=== PATIENT | female | born 1980 | race African-American/Black ===

== ENCOUNTER 2016-07-19 10:43 | Inpatient (IN) | payer BC ==
[2016-07-17 13:04] VITALS: BMI 37.5
[2016-07-19] MEDS ORDERED: ROCURONIUM BROMIDE 50 MG/5 ML VIAL ONE ×2 (11:49→14:18)
[2016-07-19] MEDS ORDERED: PROPOFOL 20 ML ONE (11:49)
[2016-07-19] MEDS ORDERED: MIDAZOLAM HCL 2 MG/2 ML SINGLE DOSE VIAL ONE (11:50)
[2016-07-19] MEDS ORDERED: BUPIVACAINE HCL/PF 0.5% (5MG/ML) 10 ML VIAL ONE (11:52)
[2016-07-19] MEDS ORDERED: INDOCYANINE GREEN 25 MG/10 ML VIAL IVPUSH ONE (12:53)
[2016-07-19] MEDS ORDERED: METRONIDAZOLE 500 MG PREMIXED 100 ML IVPB ONE (13:31)
[2016-07-19] MEDS ORDERED: BUPIVACAINE HCL/PF 0.5% (5MG/ML) 10 ML VIAL IJ ONE ×2 (13:34)
[2016-07-19] MEDS ORDERED: LEVOFLOXACIN 500 MG PREMIX BAG IVPB ONE (13:35)
[2016-07-19] MEDS ORDERED: METRONIDAZOLE 500 MG PREMIXED 500 MG/100 ML MG IVPB ONE (13:40)
[2016-07-19] MEDS ORDERED: GLYCOPYRROLATE 0.2 MG/1 ML VIAL ONE (15:50)
[2016-07-19] MEDS ORDERED: NEOSTIGMINE METHYLSULFATE 0.5 MG/ML - 10 ML MDV ONE (15:51)
--- NOTE | 2016-07-19 16:07 | OP ---
Operative Note - Note: Operative Date: 07/19/16 Pre-Operative Diagnosis: Abdominal pain. h/o SBO Operation: Robotic lysis of adhesions. repair small bowel enterotomy. cecal pexy. Findings: Internal hernia Post-Operative Diagnosis: Same as Pre-op Surgeon: Roni Herrera Wind Turbine Sheet Metal Worker: Tony Puga Anesthesiologist/ORNAMENTAL IRON WORKER: Ayaan Arenas Anesthesia: General Estimated Blood Loss (mls): 5 Fluid Volume Replaced (mls): 1,200
--- NOTE | 2016-07-19 16:09 | SURG ---
Surgery Distribution Coordinator Note Distribution Coordinator: Tony Puga PA-C Date of Service: 07/19/16 Diagnosis: h/o SBO, abdominal pain Procedure: Robotic lysis of adhesions, repair small bowel enterotomy, cecal pexy I was present for the entirety of the operative procedure. For further detail, please refer to operative report. Visit type - Case Type Case Type: Scheduled Admission - New patient This patient is new to me today: Yes Date on this admission: 07/19/16
[2016-07-19] MEDS ORDERED: ACETAMINOPHEN 1000 MG/100 ML VIAL (NON FORMULARY) IVPB PRN (16:11)
[2016-07-19] MEDS ORDERED: PROMETHAZINE HCL 25 MG/1 ML VIAL IVPUSH PRN (16:15)
[2016-07-19] MEDS ORDERED: ONDANSETRON 4 MG/2 ML VIAL IVPUSH PRN (16:15)
[2016-07-19] MEDS ORDERED: LACTATED RINGERS SOLUTION 1,000 ML IV SCH (16:15)
[2016-07-19] MEDS ORDERED: ACETAMINOPHEN INJECTION 100 ML IVPB ONE (16:47)
[2016-07-19] MEDS ORDERED: ACETAMINOPHEN 1000 MG/100 ML VIAL (NON FORMULARY) IVPB ONE (16:58)
[2016-07-19] MEDS: oxyCODONE HCL 5 MG TABLET PO PRN (19:27)
[2016-07-19] MEDS: HEPARIN NA (PORCINE) 5,000 UNITS/ML 1ML VIAL SQ SCH (22:00)
[2016-07-20] MEDS: HEPARIN NA (PORCINE) 5,000 UNITS/ML 1ML VIAL SQ SCH ×3 (06:50→21:31)
[2016-07-20] MEDS: oxyCODONE HCL 5 MG TABLET PO PRN ×4 (08:25→19:44)
[2016-07-20] MEDS: FOLIC ACID 1 MG TABLET (FP) PO SCH (09:42)
--- NOTE | 2016-07-20 10:37 | PN ---
Progress Note (short form) - Note Progress Note: Patient seen and examined. Patient is having abdominal pain, worse with movement and deep breaths. Pain medication is helping. She is tolerating her diet and urinating without issue. Denies passing flatus. She has not been OOB yet. Denies fever/chills/nausea/vomiting. Last Vital Signs Temp Pulse Resp BP Pulse Ox 97.7 F 70 18 113/67 96 07/20/16 07:36 07/20/16 07:36 07/20/16 07:36 07/20/16 07:36 07/20/16 09:00 Exam: Gen: NAD Abd: incisions c/d/i, soft, nondistended, tender to palp RLQ and Left side around incisions Problem List - Problems (1) Hernia of abdominal cavity Assessment/Plan: POD#1 Robotic lysis of adhesions, repair small bowel enterotomy, cecal pexy Discussed with Dr. Herrera Advance diet to fulls for lunch, regular dinner for dinner as tolerated, DC IVF Pain control, Tylenol added, 5 or 10 mg PO oxycodone Ambulate FOllow-up morning labs DVT prophylaxis Code(s): K46.9 - UNSPECIFIED ABDOMINAL HERNIA WITHOUT OBSTRUCTION OR GANGRENE
--- NOTE | 2016-07-20 11:58 | OP ---
DATE OF OPERATION: 07/19/2016 PROCEDURE: Robotic-assisted diagnostic laparoscopy, lysis of adhesions, enterorrhaphy, and cecopexy. PREOPERATIVE DIAGNOSES: Chronic right lower quadrant abdominal pain, possible internal herniation. SURGEON: Roni Herrera MD POSTOPERATIVE DIAGNOSES: Intra-abdominal adhesions, internal hernia, enterotomy , floppy cecum. SCRAP CUTTER: INES Herrera ANESTHESIA: General endotracheal. INDICATIONS: This is a 35-year-old female who presents with intermittent right lower quadrant pain associated with nausea and occasional constipation. The patient has had multiple visits to the emergency department where the latest CT scan showed multiple loops of bowel in the right lower quadrant with mesenteric swirling and possible internal herniation. The patient was advised to have a diagnostic laparoscopy to correct the possible cause of the symptoms. Consent was obtained after discussing the risks, benefits and alternatives of the procedure. DESCRIPTION OF PROCEDURE: The patient was brought to the operating room and placed in supine position. General endotracheal anesthesia was administered. A Clark catheter was placed in the bladder. The abdomen was prepped and draped in the usual sterile fashion. Using 0.5% Marcaine, local anesthesia was administered to the proposed incision site. The peritoneal cavity was entered via a left upper quadrant subcostal 8-mm incision using the Veress needle technique. Pneumoperitoneum was established. An 8-mm port was inserted into the peritoneal cavity, followed by insertion of the 3D 30-degree scope. The peritoneal cavity was inspected and was noted to contain dense adhesions to the posterior abdominal wall containing small bowel and omentum. Three 8-mm ports were inserted, one at the flank at the level of the umbilicus, one at the left lower quadrant, and one 7 mm away from the subcostal port. The laparoscope was then transferred to the flank port at the umbilical level. The patient was then placed in the Trendelenburg left side down position. The target organ was set and the robotic arms were docked. A fenestrated bipolar was inserted at the left lower quadrant port. The laparoscopic jeffy were inserted at the lateral subcostal port and the ProGrasp forceps were inserted at the medial subcostal port. The adhesions were then taken down sharply using the Endorist jeffy connected to monopolar cautery. During the procedure, an inadvertent enterotomy to the loop of small bowel firmly adherent to the posterior abdominal wall was created. The rest of the dense adhesions to the several loops of small bowel were then taken down. After the adhesions were completely taken down, the inadvertent enterotomy was repaired with 2 layers of Vicryl 2-0 - an inner layer of 2-0 Vicryl continuous suture and then a seromuscular layer of 2-0 Vicryl suture. After repair was deemed satisfactory , the rest of the abdomen was carefully inspected. The anterior wall of the uterus was noted to be adherent to the posterior abdominal wall because of the patient's previous section. The distal small bowel and the cecum were noted to be herniated into the pelvis behind the right fallopian tube, . The cecum was noted to be collapsed and was floppy with no attachment to the right pericolic gutter. The cecum and distal small bowel were then reduced back to the abdominal cavity from the pelvis. The small bowel was then inspected, starting from the ileocecal valve toward the ligament of Treitz. Several segments of dilated small bowel were noted but no kinking was noted other than the most proximal jejunum, where the previous resection and anastomosis were found. The flimsy adhesion was also taken down. The omental adhesion below the umbilicus was also taken down using the Endowrist jeffy connected to monopolar cautery. The enterorrhaphy was again inspected and was noted to be satisfactory. The floppy cecum was then anchored to the right pericolic gutter with one [id number] Vicryl 3-0 suture to prevent future cecal volvulus. The peritoneal cavity was again carefully inspected and was noted to be free of inadvertent injury or active bleeding. The robotic instruments were then removed and the robotic arms were undocked. The pneumoperitoneum was evacuated and the ports were removed. The wounds were closed with subcuticular Biosyn 4 sutures for the skin reinforced with Dermabond. The patient was successfully extubated and transferred to the post anesthesia care unit in satisfactory condition. ESTIMATED BLOOD LOSS: Approximately 5 mL WOUND CLASS: Clean - contaminated. The patient received 500 mg of Levaquin and 500 mg of Flagyl prior to the start of the procedure. Latia [id number] MTDD
--- NOTE | 2016-07-20 12:26 | HP ---
Admitting History and Physical - Admission Chief Complaint: abdominal pain, S/P robotic JESSE, enterorrhaphy, cecopexy History of Present Illness: 35 Y.O FEMALE WITH HISTORY OF CHRONIC RIGHT SIDED ABDOMINAL PAIN WITH CT FINDINGS OF POSSIBLE INTERNAL HERNIA. PATIENT IS S/P ROBOTIC ASSISTED JESSE, ENTERORRHAPHY, CECOPEXY FOR DENSE INTRAABDOMINAL ADHESIONS, ENTEROTOMY, AND FLOPPY CECUM. CURRENTLY C/O MODERATE POST-OP PAIN, NO FLATUS, AND TOLERATING CLEAR LIQUIDS. 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: Seizure (CHILDHOOD) Gastrointestinal: Yes: Other (SMALL BOWEL RESECTON FOR SBO) ...LMP Comment: 06/17/16 - Past Surgical History Additional Past Surgical History: Exploratory laparotomy, small bowel resection for SBO - Advance Directives Advance Directives: Yes: Health Care Proxy - Smoking History Smoking history: Never smoked - Alcohol/Substance Use Hx Alcohol Use: Yes (WINE OCCAS) Home Medications - Allergies Allergies/Adverse Reactions: Allergies Allergy/AdvReac Type Severity Reaction Status Date / Time No Known Allergies Allergy Verified 07/19/16 11:17 - Home Medications Home Medications: Ambulatory Orders Folic Acid 1 mg PO DAILY 04/29/16 Cholecalciferol (Vitamin D3) [Vitamin D3] 50,000 unit PO WEEKLY 07/17/16 Oxycodone HCl/Acetaminophen [Percocet 10-325 mg Tablet] 1 each PO PRN PRN Oxycodone HCl/Acetaminophen [Percocet 5-325 mg Tablet] 1 tab PO Q4H PRN #20 tablet MDD 6 07/19/16 Physical Examination Vital Signs: Vital Signs Temperature 97.7 F 07/20/16 07:36 Pulse Rate 70 07/20/16 07:36 Respiratory Rate 18 07/20/16 07:36 Blood Pressure 113/67 07/20/16 07:36 O2 Sat by Pulse Oximetry (%) 96 07/20/16 09:00 Constitutional: Yes: Well Nourished, Mild Distress Eyes: Yes: Conjunctiva Clear HENT: Yes: Normocephalic Neck: Yes: Supple Cardiovascular: Yes: Regular Rate and Rhythm Respiratory: Yes: CTA Bilaterally Gastrointestinal: Yes: Abdomen, Obese, Tenderness (+ SUPRAUMBILICAL AND RUQ TENDERNESS) ...Rectal Exam: Yes: Deferred Imaging - Results Cat Scan: Report Reviewed, Image Reviewed Problem List - Problems (1) Adhesion of abdominal wall Assessment/Plan: ADMIT FOR IN PATIENT SERVICES CLEAR LIQUID DIET CONTINUE IVF PARENTERAL ANALGESIA OOB, IS, DVT PROPHYLAXIS Code(s): K66.0 - PERITONEAL ADHESIONS (POSTPROCEDURAL) (POSTINFECTION)
[2016-07-20] MEDS: ACETAMINOPHEN 325 MG TABLET (FP) PO PRN ×3 (12:29→19:44)
[2016-07-21] MEDS: ACETAMINOPHEN 325 MG TABLET (FP) PO PRN ×4 (02:29→21:49)
[2016-07-21] MEDS: oxyCODONE HCL 5 MG TABLET PO PRN ×4 (02:29→21:48)
[2016-07-21] MEDS: HEPARIN NA (PORCINE) 5,000 UNITS/ML 1ML VIAL SQ SCH ×3 (06:27→21:26)
[2016-07-21 08:16] LABS: MCH 28.2 pg (25.7-33.7); MCHC 33.6 g/dl (32.0-36.0); MEAN CELL VOLUME 83.8 fl (80-96); MEAN PLT VOLUME 8.1 fl (7.5-11.1); PLATELET COUNT 262 K/MM3 (134-434); RDW 13.5 % (11.6-15.6); WHITE BLOOD COUNT 5.6 K/mm3 (4.0-10.0)
[2016-07-21] MEDS: FOLIC ACID 1 MG TABLET (FP) PO SCH ×2 (08:35→10:03)
[2016-07-21 08:37] LABS: CALCIUM 8.4 mg/dL (8.5-10.1)
--- NOTE | 2016-07-21 11:34 | PN ---
Progress Note (short form) - Note Progress Note: Surgery-Dr. Herrera Patient seen and examined, discussed with nursing. Patient states she feels better than yesterday. States she is still having pain, but this is improving. She tolerated clears and wants to try something thicker. She states she is passing a lot of gas. Denies fever, chills, nausea, vomiting. Last Vital Signs Temp Pulse Resp BP Pulse Ox 98.0 F 80 18 144/90 99 07/21/16 08:04 07/21/16 08:04 07/21/16 08:04 07/21/16 08:04 07/20/16 21:00 CBC, BMP 07/21/16 06:45 07/21/16 06:45 Exam: Gen: NAD, resting in bed Cardio: RRR Resp: CTA Abd: soft, nondistended, incisional tenderness and tender in RUQ with palp, incisions c/d/i Problem List - Problems (1) Hernia of abdominal cavity Assessment/Plan: POD#2 s/p robotic lysis of adhesions, repair small bowel enterotomy, cecal pexy Discussed with Dr. Herrera Full liquids Pain control, Tylenol, 5 or 10 mg PO oxycodone Ambulate DVT prophylaxis Code(s): K46.9 - UNSPECIFIED ABDOMINAL HERNIA WITHOUT OBSTRUCTION OR GANGRENE
[2016-07-21] MEDS ORDERED: ONDANSETRON 4 MG/2 ML VIAL IVPB ONE (22:15)
--- NOTE | 2016-07-21 23:10 | HOSP ---
Subjective - Review of Symptoms Events since last encounter: Pt c/o nausea, RUQ pain that radiates to her R arm, and chest tightness. Nausea was relieved with zofran. RUQ pain worse with breathing, is 10/10 and constant. Denies any diaphoresis or pain radiating anywhere else. Chest tightness started approximately 1 hour ago. She denies SOB but is having trouble taking deep breaths due to pain. Pt states she is unsure if pain is worse with food since she has not eaten recently. Pt also states her period has also just started. At approximately 11:30 pm, rechecked on patient and states pain is subsiding. Physical Examination Vital Signs: Vital Signs Temperature 98.7 F 07/21/16 18:30 Pulse Rate 98 H 07/21/16 18:30 Respiratory Rate 20 07/21/16 18:30 Blood Pressure 141/82 07/21/16 18:30 O2 Sat by Pulse Oximetry (%) 99 07/21/16 09:00 Constitutional: Yes: Well Nourished, Calm, Mild Distress (slow to speak) Eyes: Yes: WNL HENT: Yes: WNL, Atraumatic, Normocephalic Cardiovascular: Yes: WNL, Regular Rate and Rhythm, S1, S2 Respiratory: Yes: WNL, CTA Bilaterally (auscultated anteriorly) Gastrointestinal: Yes: Soft, Hypoactive Bowel Sounds, Tenderness (Epigastric and L sided pain moderate pain to palpation. R sided mild pain to palpation.) Neurological: Yes: WNL, Alert, Oriented Labs: CBC, BMP 07/21/16 06:45 07/21/16 06:45 Hospitalist Encounter Assessment: Chest tightness/RUQ pain, radiating to R arm -Stat EKG ordered -NSR at 91 bpm, qtc 462 -Stat trop ordered -consider abd U/S for gallstones -will hold off on pain meds as pt is stating pain is improving at this time. Nausea -Zofran 4mg IV once ordered Visit type - Emergency Visit Emergency Visit: Yes ED Registration Date: 07/19/16 Care time: The patient presented to the Emergency Department on the above date and was hospitalized for further evaluation of their emergent condition. - New Patient This patient is new to me today: Yes Date on this admission: 07/25/16 - Critical Care Critical Care patient: No
[2016-07-21] MEDS ORDERED: oxyCODONE HCL 5 MG TABLET PO ONE (23:19)
[2016-07-22] MEDS: HEPARIN NA (PORCINE) 5,000 UNITS/ML 1ML VIAL SQ SCH ×3 (06:24→21:31)
--- NOTE | 2016-07-22 09:28 | PN ---
Progress Note (short form) - Note Progress Note: SURGERY C/O PERSISTENT ABDOMINAL PAIN ABD: EXQUISITE TENDERNESS OVER EPIGASTRIC AND RUQ AREAS A: R/O ENTERORRHAPHY LEAK P: CT SCAN OF THE ABDOMEN AND PELVIS STAT Addendum 10:45 pm Patient noted to be febrile to [address] scan of abdomen and pelvis showed residual pneumoperitoneum and free fluid consistent with post-op changes. Continues to have abdominal pain but states that it is less than the immediate post-op period. Abd: soft, tender on deep palpation A: unclear at this time if pain is secondary to lysis of scar tissue or possible enterotomy leak P: stat cbc, bmp, u/a, u c/s, blood c/s, empiric Zosyn will reassess in am and if pain is unchanged or worse, will return to OR diagnostic laparoscopy possible laparotomy Problem List - Problems (1) Adhesion of abdominal wall Code(s): K66.0 - PERITONEAL ADHESIONS (POSTPROCEDURAL) (POSTINFECTION)
[2016-07-22 10:20] LABS: BASOPHIL 0.5 % (0-2.0); EOSINOPHIL 2.7 % (0-4.5); MCH 28.1 pg (25.7-33.7); MCHC 33.5 g/dl (32.0-36.0); MEAN CELL VOLUME 83.8 fl (80-96); MEAN PLT VOLUME 7.6 fl (7.5-11.1); NEUTROPHILS 67.8 % (42.8-82.8); PLATELET COUNT 273 K/MM3 (134-434); RDW 13.5 % (11.6-15.6); WHITE BLOOD COUNT 4.6 K/mm3 (4.0-10.0)
[2016-07-22 10:35] LABS: ALBUMIN 3.2 g/dl (3.4-5.0); ALK PHOS 63 U/L (45-117); AMYLASE 48 U/L (25-115); ANION GAP 9 (8-16); BILIRUBIN,TOTAL 0.5 mg/dL (0.2-1.0); CALCIUM 8.4 mg/dL (8.5-10.1); CO2 30 mmol/L (21-32); CREATININE 0.9 mg/dL (0.55-1.02); GLUCOSE,RANDOM 84 mg/dL (74-106); SGOT/AST 12 U/L (15-37); SGPT/ALT 15 U/L (12-78); TOT PROT 7.2 g/dl (6.4-8.2)
[2016-07-22] MEDS: ONDANSETRON 4 MG/2 ML VIAL IVPB PRN (11:20)
--- NOTE | 2016-07-22 12:37 | EKG ---
Test Reason : Blood Pressure : / mmHG Vent. Rate : 091 BPM Atrial Rate : 091 BPM P-R Int : 130 ms QRS Dur : 080 ms QT Int : 376 ms P-R-T Axes : 016 020 032 degrees QTc Int : 462 ms NORMAL SINUS RHYTHM NONSPECIFIC T WAVE ABNORMALITY PROLONGED QT ABNORMAL ECG NO PREVIOUS ECGS AVAILABLE Confirmed by MERNA MADRIGAL, DEBORAH ([id number]) on 07/22/2016 12:36:43 PM Referred By: Roni Herrera Confirmed By:DEBORAH BAUMAN MD
[2016-07-22] MEDS: oxyCODONE HCL 5 MG TABLET PO PRN (12:50)
[2016-07-22] MEDS: ACETAMINOPHEN 325 MG TABLET (FP) PO PRN ×2 (12:51→21:31)
[2016-07-22] MEDS: FOLIC ACID 1 MG TABLET (FP) PO SCH (14:53)
[2016-07-22] MEDS ORDERED: LACTATED RINGERS SOLUTION 1,000 ML IV SCH (17:30)
[2016-07-22] MEDS: LACTATED RINGERS SOLUTION 1,000 ML IV SCH (18:04)
[2016-07-22] MEDS ORDERED: PIPERACILLIN/TAZOB 3.375 GM/50 ML PRE-DOCKED IVPB ONE (22:28)
[2016-07-22 23:24] LABS: BASOPHIL 0.4 % (0-2.0); EOSINOPHIL 1.3 % (0-4.5); MCHC 33.4 g/dl (32.0-36.0); MEAN CELL VOLUME 83.7 fl (80-96); MEAN PLT VOLUME 7.8 fl (7.5-11.1); NEUTROPHILS 68.1 % (42.8-82.8); PLATELET COUNT 290 K/MM3 (134-434); RDW 13.7 % (11.6-15.6); WHITE BLOOD COUNT 4.7 K/mm3 (4.0-10.0)
[2016-07-22 23:51] LABS: CALCIUM 8.9 mg/dL (8.5-10.1); CREATININE 1.1 mg/dL (0.55-1.02)
[2016-07-23 01:31] LABS: URINE APPEARANCE CLEAR; URINE BILIRUBIN NEGATIVE (NEGATIVE); URINE COLOR STRAW; URINE GLUCOSE (UA) NEGATIVE (NEGATIVE); URINE KETONE NEGATIVE (NEGATIVE); URINE LEUK ESTERASE NEGATIVE (NEGATIVE); URINE NITRITE NEGATIVE (NEGATIVE); URINE PROTEIN NEGATIVE (NEGATIVE); URINE UROBILINOGEN NEGATIVE E.U./dl (0.2-1.0)
[2016-07-23 01:44] LABS: URINE BLOOD 1+ (NEGATIVE)
[2016-07-23 01:46] LABS: URINE RBC <1 /hpf (0-3); URINE WBC 1 /hpf (3-5)
[2016-07-23] MEDS: HEPARIN NA (PORCINE) 5,000 UNITS/ML 1ML VIAL SQ SCH ×3 (06:21→21:36)
[2016-07-23 07:54] LABS: BASOPHIL 0.3 % (0-2.0); EOSINOPHIL 1.1 % (0-4.5); MCH 28.2 pg (25.7-33.7); MCHC 33.9 g/dl (32.0-36.0); MEAN CELL VOLUME 83.2 fl (80-96); MEAN PLT VOLUME 7.7 fl (7.5-11.1); NEUTROPHILS 66.6 % (42.8-82.8); PLATELET COUNT 249 K/MM3 (134-434); RDW 13.6 % (11.6-15.6); WHITE BLOOD COUNT 4.5 K/mm3 (4.0-10.0)
[2016-07-23 08:36] LABS: CALCIUM 8.5 mg/dL (8.5-10.1)
[2016-07-23] MEDS: FOLIC ACID 1 MG TABLET (FP) PO SCH (11:50)
--- NOTE | 2016-07-23 12:49 | PN ---
Progress Note (short form) - Note Progress Note: Patient seen and examined with Dr. Herrera. Patient is still having some pain in her RUQ and left side of abdomen. She had a fever overnight, this is improving , patient states she has a runny nose. Patient had some nausea this morning, overall improving. She is passing a lot of gas, denies BM, is urinating without issue. Last Vital Signs Temp Pulse Resp BP Pulse Ox 98.8 F 95 H 18 108/65 95 07/23/16 08:50 07/23/16 08:50 07/23/16 08:50 07/23/16 08:50 07/23/16 09:10 CBC, BMP 07/23/16 07:00 07/23/16 07:00 Exam: Gen: NAD, resting comfortably in chair Abd: soft, nondistended, tender with deep palpation in RUQ and left abdomen near port sites Problem List - Problems (1) Hernia of abdominal cavity Assessment/Plan: POD#4 s/p robotic lysis of adhesions, repair small bowel enterotomy, cecal pexy Trial clear liquids Monitor pain Ambulate Discussed with Dr. Herrera Code(s): K46.9 - UNSPECIFIED ABDOMINAL HERNIA WITHOUT OBSTRUCTION OR GANGRENE
[2016-07-23] MEDS ORDERED: oxyCODONE HCL 5 MG TABLET PO PRN (12:53)
[2016-07-23] MEDS: LACTATED RINGERS SOLUTION 1,000 ML IV SCH ×2 (14:04→18:21)
[2016-07-23] MEDS: ACETAMINOPHEN 325 MG TABLET (FP) PO PRN ×2 (16:40→21:40)
[2016-07-24] MEDS: LACTATED RINGERS SOLUTION 1,000 ML IV SCH (01:31)
[2016-07-24] MEDS: HEPARIN NA (PORCINE) 5,000 UNITS/ML 1ML VIAL SQ SCH ×2 (05:51→13:03)
--- NOTE | 2016-07-24 08:17 | PN ---
Progress Note (short form) - Note Progress Note: POD#5 Pt with mid abd pain above the umbilicus yesterday after eating, the landry was relieved with tylenol. She is passing flatus and had two bowel movements. Vital Signs Period Temp Pulse Resp BP Sys/Phillips Pulse Ox Last 24 Hr 98.0 F-98.8 F 69-95 18-20 108-115/65-76 95-95 PE: GEN: appears comfortable CV: RRR Lungs: CTA b/l anteriorly ABD: soft, non-distended, mild abd tenderness above umbilicus, no guarding. Inc c/d/i LE: no calf tenderness/swelling b/l CBC, BMP 07/23/ 07:00 07/23/16 07:00 A/P: 35 yo female s/p robotic JESSE, SB enterotomy repair, cecal pexy Cont oob/ambulate Monitor pain after eating today and then plan for possible discharge today. DVT ppx with hep SQ Pain management with oral tylenol/oxycodone
[2016-07-24] MEDS: FOLIC ACID 1 MG TABLET (FP) PO SCH (09:33)
[2016-07-24] MEDS ORDERED: ERGOCALCIFEROL (VITAMIN D2) 50,000 UNIT CAPSULE (FP) PO SCH (10:00)
[2016-07-24] MEDS: ONDANSETRON 4 MG/2 ML VIAL IVPB PRN (13:03)
[2016-07-24] MEDS: ACETAMINOPHEN 325 MG TABLET (FP) PO PRN (13:03)
[2016-07-24 13:14] VITALS: BP 127/86; PULSE 91; TEMP 98.4
--- NOTE | 2016-07-24 16:54 | DS ---
Physical Exam: SUBJECTIVE: Patient seen and examined in the morning of POD#4, had mild abdominal pain above the umbilicus yesterday after eating, but the pain was relieved with Tylenol. She was passing flatus and had two bowel movements. In the afternoon the patient was oob, ambulating, tolerating diet, voiding without issue, without complaints. OBJECTIVE: Vital Signs Temperature 98.4 F 07/24/16 13:12 Pulse Rate 91 H 07/24/16 13:12 Respiratory Rate 22 07/24/16 13:12 Blood Pressure 127/86 07/24/16 13:12 O2 Sat by Pulse Oximetry (%) 98 07/24/16 09:00 PHYSICAL EXAM GENERAL: The patient is awake, alert, and fully oriented, in no acute distress, resting comfortably. HEAD: Normal with no signs of trauma. EYES: PERRL, extraocular movements intact, sclera anicteric, conjunctiva clear. ENT: Moist mucous membranes. NECK: Trachea midline, full range of motion, supple. LUNGS: Breath sounds equal, clear to auscultation bilaterally, no accessory muscle use. HEART: Regular rate and rhythm, S1, S2. ABDOMEN: Soft, nondistended, normoactive bowel sounds, mild ambominal tenderness above the umbilicus, no guarding, incisions c/d/i. EXTREMITIES: warm, well-perfused, without calf tenderness. NEUROLOGICAL: Normal speech, gait not observed. PSYCH: Normal mood, normal affect. SKIN: Warm, dry. LABS CBC,CMP WBC 4.5 K/mm3 (4.0-10.0) 07/23/16 07:00 RBC 3.91 M/mm3 (3.60-5.2) 07/23/16 07:00 Hgb 11.0 GM/dL (10.7-15.3) 07/23/16 07:00 Hct 32.6 % (32.4-45.2) 07/23/16 07:00 MCV 83.2 fl (80-96) 07/23/16 07:00 MCHC 33.9 g/dl (32.0-36.0) 07/23/16 07:00 RDW 13.6 % (11.6-15.6) 07/23/16 07:00 Plt Count 249 K/MM3 (134-434) 07/23/16 07:00 MPV 7.7 fl (7.5-11.1) 07/23/16 07:00 Neutrophils % 66.6 % (42.8-82.8) 07/23/16 07:00 Lymphocytes % 20.5 % (8-40) 07/23/16 07:00 Monocytes % 11.5 % (3.8-10.2) H 07/23/16 07:00 Eosinophils % 1.1 % (0-4.5) 07/23/16 07:00 Basophils % 0.3 % (0-2.0) 07/23/16 07:00 Sodium 140 mmol/L (136-145) 07/23/16 07:00 Potassium 3.8 mmol/L (3.5-5.1) 07/23/16 07:00 Chloride 100 mmol/L (98-107) 07/23/16 07:00 Carbon Dioxide 29 mmol/L (21-32) 07/23/16 07:00 Anion Gap 11 (8-16) 07/23/16 07:00 BUN 3 mg/dL (7-18) L 07/23/16 07:00 Creatinine 1.0 mg/dL (0.55-1.02) 07/23/16 07:00 Creat Clearance w eGFR > 60 (>60) 07/22/16 09:45 Random Glucose 87 mg/dL (74-106) 07/23/16 07:00 Calcium 8.5 mg/dL (8.5-10.1) 07/23/16 07:00 Total Bilirubin 0.5 mg/dL (0.2-1.0) D 07/22/16 09:45 AST 12 U/L (15-37) L D 07/22/16 09:45 ALT 15 U/L (12-78) 07/22/16 09:45 Alkaline Phosphatase 63 U/L (45-117) 07/22/16 09:45 Troponin I < 0.02 ng/ml (0.00-0.05) 07/21/16 23:11 Total Protein 7.2 g/dl (6.4-8.2) 07/22/16 09:45 Albumin 3.2 g/dl (3.4-5.0) L 07/22/16 09:45 Total Amylase 48 U/L (25-115) 07/22/16 09:45 Lipase 69 U/L (73-393) L 07/22/16 09:45 HOSPITAL COURSE: Date of Admission:07/19/16 Date of Discharge: 07/24/16 The patient with history of chronic right-sided abdominal landry with CT findings of possible internal hernia was admitted to the [facility] after an elective robotic assisted lysis of adhesions, enterorrhaphy, and cecopexy for dense adhesions, enterotomy, and floppy cecum. The patient had some persistent abdominal pain postoperatively, but repeat CT scan of abdomen and pelvis showed residual pneumoperitoneum and free fluid consistent with post-operative changes. The patient's pain continued to improve and was controlled by Tylenol prior to discharge. The patient was able to ambulate, void without issue, was passing flatus and having BMs, and was advanced to a regular diet. On POD#4 it was felt the patient was stable for discharge with instructions to follow-up with Dr. Herrera. The discharge instructions and an oral pain management plan were reviewed with the patient. All questions answered. Above plan discussed with Dr. Herrera and agreed. Post Operative Instructions Physical activity Resume your normal everyday activity as tolerated no heavy lifting or exercise until seen by your surgeon. You may walk unlimited carlie of and climb stairs. You may resume driving the car when you feel safe and comfortable behind the wheel. Do not drive while taking narcotics. Wound care If you have a bandage, leave it on, and keep dry for 48-72 hours. After that time discard the outer bandage. If there are tapes on the skin under the outer bandage, leave them in place. They will peel off in the next 7 to 10 days. Do Not Peel them off. You may shower the day after surgery. If there are tapes present on the skin, you may shower over them. Diet There are no dietary restrictions. Eat healthy, high-fiber foods. Drink 6 to 8 glasses of liquid each day. This will assist in keeping your bowels are regular. Pain management You may take Tylenol (acetaminophen). Any pain prescription medication ordered should be taken as prescribed for moderate to severe pain. Call Dr. Herrera for any of the following: Severe pain not relieved by medication Fever of 101 or higher Excessive bleeding or drainage on dressing Inability to urinate Call the office at [phone] for an appointment in seven days. Minutes to complete discharge: 30 Visit type - Case Type Case Type: Scheduled Admission
== END 2016-07-24 17:27 | disposition home or self-care (01) | DRG 330 ==
LOC: JASU-SURG 10:43 → J6S 17:55
PROVIDERS: ADMIT Surgery; ATTEND Surgery
PROC: 0DQH0ZZ Repair Cecum, Open Approach (ICD-10-PCS; 2016-07-19)
PROC: 0DNW0ZZ Release Peritoneum, Open Approach (ICD-10-PCS; 2016-07-19)
PROC: 0WJG4ZZ Inspection of Peritoneal Cavity, Percutaneous Endoscopic Approach (ICD-10-PCS; 2016-07-19)
PROC: 8E0W0CZ Robotic Assisted Procedure of Trunk Region, Open Approach (ICD-10-PCS; 2016-07-19)
PROC: 0DQ80ZZ Repair Small Intestine, Open Approach (ICD-10-PCS; principal; 2016-07-19 12:00)
DX: K45.8 Other specified abdominal hernia without obstruction or gangrene (principal); K56.60 Unspecified intestinal obstruction; K66.0 Peritoneal adhesions (postprocedural) (postinfection); R11.0 Nausea
CPT/HCPCS: 36415; 74177-TC; 80048; 80053; 81003; 81015; 82150; 83690; 84484; 84703; 85025; 85027; 86850; 86900; 86901; 87040; 87086; 93005; 93010; 94010; 94760; J1644; Q9967

== ENCOUNTER 2017-01-21 21:08 | Emergency (ER) | payer BC, OTHER ==
[2017-01-21 21:13] VITALS: BP 150/88; PULSE 93; TEMP 98.1; BMI 41.6
--- NOTE | 2017-01-21 21:17 | PDOC ---
History of Present Illness - General Chief Complaint: Pain Stated Complaint: ABD PAIN Time Seen by Provider: 01/21/17 21:15 History Source: Patient Exam Limitations: No Limitations - History of Present Illness Travel History: No Initial Comments: 01/21/17 21:15 36-year-old female with a history of seizures presents to the emergency department complaining of 10/10 sharp nonradiating intermittent right upper quadrant abdominal pains with nausea denies vomiting, fever/chills, dizziness, lightheadedness, headaches, neck pains, back pains, chest pain, shortness of breath, urinary symptoms: Frequency/urgency/hesitancy, hematuria, flank pains. Patient was seen by her GI physician earlier today and advised her to come to the emergency department for persistent discomfort. Patient denies similar symptoms. Timing/Duration: reports: intermittent Quality: reports: moderate Abdominal Pain Onset Location: reports: RUQ Pain Radiation: reports: no radiation Past History - Past Medical History Allergies/Adverse Reactions: Allergies Allergy/AdvReac Type Severity Reaction Status Date / Time No Known Allergies Allergy Verified 01/21/17 21:12 Home Medications: Ambulatory Orders NK [No Known Home Medication] 01/21/17 Seizures: Yes (EPILEPSY- LAST ONE WAS 15YRS AGO) - Surgical History Abdominal Surgery: Yes (SM BOWEL OBSTR) - Suicide/Smoking/Psychosocial Hx Smoking History: Never smoked Have you smoked in the past 12 months: No Information on smoking cessation initiated: No Hx Alcohol Use: No Drug/Substance Use Hx: No Substance Use Type: Alcohol Hx Substance Use Treatment: No Review of Systems - Review of Systems Able to Perform ROS?: Yes Comments:: 01/21/17 21:17 CONSTITUTIONAL: Absent: fever, chills, diaphoresis, generalized weakness, malaise, loss of appetite HEENT: Absent: rhinorrhea, nasal congestion, throat pain, throat swelling, difficulty swallowing, mouth swelling, ear pain, eye pain, visual Changes CARDIOVASCULAR: Absent: chest pain, loss of consciousness, palpitations, irregular heart rate, peripheral edema RESPIRATORY: Absent: cough, shortness of breath, dyspnea with exertion, orthopnea, wheezing, stridor, hemoptysis GASTROINTESTINAL: +RUQ pain Absent: abdominal distension, nausea, vomiting, diarrhea, constipation, melena, hematochezia GENITOURINARY: Absent: dysuria, frequency, urgency, hesitancy, hematuria, flank pain, genital pain MUSCULOSKELETAL: Absent: myalgia, arthralgia, joint swelling SKIN: Absent: rash, itching, pallor HEMATOLOGIC/IMMUNOLOGIC: Absent: easy bleeding, easy bruising, lymphadenopathy, frequent infections ENDOCRINE: Absent: unexplained weight gain, unexplained weight loss, heat intolerance, cold intolerance NEUROLOGIC: Absent: headache, focal weakness or paresthesias, dizziness, unsteady gait, seizure, mental status changes, bladder or bowel incontinence PSYCHIATRIC: Absent: anxiety, depression, suicidal or homicidal ideation, hallucinations. Is the patient limited Andorran proficient: No *Physical Exam - Vital Signs Last Vital Signs Temp Pulse Resp BP Pulse Ox 98.1 F 93 H 18 150/88 100 01/21/17 21:11 01/21/17 21:11 01/21/17 21:11 01/21/17 21:11 01/21/17 21:11 - Physical Exam Comments: 01/21/17 21:17 GENERAL: Well developed, well nourished. Awake and alert. No acute distress. HEENT: Normocephalic, atraumatic. PERRLA, EOMI. No conjunctival pallor. Sclera are non- icteric. Moist mucous membranes. Oropharynx is clear. NECK: Supple. Full ROM. No JVD. Carotid pulses 2+ and symmetric, without bruits. No thyromegaly. No lymphadenopathy. CARDIOVASCULAR: Regular rate and rhythm. No murmurs, rubs, or gallops. Distal pulses are 2+ and symmetric. PULMONARY: No evidence of respiratory distress. Lungs clear to auscultation bilaterally. No wheezing, rales or rhonchi. ABDOMINAL: RUQ pain on palp Soft. Non-distended. No rebound or guarding. No organomegaly. Normoactive bowel sounds. MUSCULOSKELETAL Normal range of motion at all joints. No bony deformities or tenderness. No CVA tenderness. EXTREMITIES: No cyanosis. No clubbing. No edema. No calf tenderness. SKIN: Warm and dry. Normal capillary refill. No rashes. No jaundice. NEUROLOGICAL: Alert, awake, appropriate. Cranial nerves 2-12 intact. No deficits to light touch and temperature in face, upper extremities and lower extremities. No motor deficits in the in face, upper extremities and lower extremities. Normoreflexic in the upper and lower extremities. Normal speech. Toes are down- going bilaterally. Gait is normal without ataxia. PSYCHIATRIC: Cooperative. Good eye contact. Appropriate mood and affect. ED Treatment Course - LABORATORY CBC & Chemistry Diagram: 01/21/17 21:19 01/21/17 21:19 Progress Note - Progress Note Progress Note: US abd limited Gallbladder contracted CBD 5mm/NL *DC/Admit/Observation/Transfer Diagnosis at time of Disposition: Disorder of gallbladder - Discharge Dispostion Disposition: HOME Condition at time of disposition: Stable Admit: No - Referrals Referrals: STAFF,NOT ON [Primary Care Provider] - Carlyle Nagy MD [Staff Physician] - - Patient Instructions Printed Discharge Instructions: DI for General Gallbladder Conditions Additional Instructions: Follow up with your physician and the Surgeon listed on your discharge Return to the ER for severe/persistent/worsening symptoms
[2017-01-21 21:35] LABS: BASOPHIL 1.1 % (0-2.0); EOSINOPHIL 1.4 % (0-4.5); MCH 27.5 pg (25.7-33.7); MCHC 33.6 g/dl (32.0-36.0); MEAN CELL VOLUME 81.7 fl (80-96); MEAN PLT VOLUME 7.9 fl (7.5-11.1); NEUTROPHILS 59.3 % (42.8-82.8); PLATELET COUNT 325 K/MM3 (134-434); WHITE BLOOD COUNT 9.6 K/mm3 (4.0-10.0)
[2017-01-21 21:36] LABS: URINE APPEARANCE SLCLOUDY; URINE BILIRUBIN NEGATIVE (NEGATIVE); URINE BLOOD NEGATIVE (NEGATIVE); URINE COLOR YELLOW; URINE GLUCOSE (UA) NEGATIVE (NEGATIVE); URINE KETONE NEGATIVE (NEGATIVE); URINE LEUK ESTERASE NEGATIVE (NEGATIVE); URINE NITRITE NEGATIVE (NEGATIVE); URINE PROTEIN NEGATIVE (NEGATIVE); URINE UROBILINOGEN NEGATIVE mg/dL (0.2-1.0)
[2017-01-21 22:11] LABS: ALBUMIN 3.2 g/dl (3.4-5.0); AMYLASE 89 U/L (25-115); ANION GAP 6 (8-16); CALCIUM 8.8 mg/dL (8.5-10.1); CO2 26 mmol/L (21-32); CREATININE 0.9 mg/dL (0.55-1.02); GLUCOSE,RANDOM 89 mg/dL (74-106); SGOT/AST 10 U/L (15-37); SGPT/ALT 19 U/L (12-78)
[2017-01-21 22:12] LABS: ALBUMIN 3.2 g/dl (3.4-5.0); BILIRUBIN,DIRECT < 0.1 mg/dL (0.0-0.2); SGOT/AST 11 U/L (15-37); SGPT/ALT 19 U/L (12-78)
[2017-01-21 22:13] LABS: ALK PHOS 58 U/L (45-117); BILIRUBIN,TOTAL 0.3 mg/dL (0.2-1.0); TOT PROT 7.5 g/dl (6.4-8.2)
[2017-01-21 22:15] LABS: ALK PHOS 58 U/L (45-117); BILIRUBIN,TOTAL 0.3 mg/dL (0.2-1.0); TOT PROT 7.5 g/dl (6.4-8.2)
[2017-01-21 22:51] LABS: C-REACTIVE PROTEIN 1.4 MG/DL (0.00-0.3)
== END 2017-01-22 01:40 | disposition home or self-care (01) ==
LOC: JER 21:08
DX: K82.8 Other specified diseases of gallbladder (principal); G40.909 Epilepsy, unspecified, not intractable, without status epilepticus
CPT/HCPCS: 36415; 76705-TC; 80053; 80076; 81003; 82150; 83690; 84703; 85025; 86140; 99281-25

== ENCOUNTER 2018-02-03 08:14 | Emergency (ER) | payer OTHER ==
[2018-02-03 08:23] VITALS: BP 115/85; PULSE 100; TEMP 98.9; BMI 41.5
[2018-02-03] MEDS ORDERED: IBUPROFEN 600 MG TABLET (FP) PO ONE ×2 (08:56→08:59)
--- NOTE | 2018-02-03 09:03 | PDOC ---
History of Present Illness - General Chief Complaint: Respiratory Stated Complaint: FLU SYMPTOMS Time Seen by Provider: 02/03/18 08:39 History Source: Patient Exam Limitations: No Limitations - History of Present Illness Initial Comments: 02/03/18 09:10 37 yr female with cough for 2 days runny nose no vomiting no diarrhea, no fever no abd pain or urinary complaints pt taking theraflu at home son with same symptoms Past History - Past Medical History Allergies/Adverse Reactions: Allergies Allergy/AdvReac Type Severity Reaction Status Date / Time No Known Allergies Allergy Verified 02/03/18 08:20 Home Medications: Ambulatory Orders Albuterol Sulfate Inhaler - [Ventolin HFA Inhaler -] 1 - 2 inh PO Q4H #1 inhaler 02/03/18 COPD: No Seizures: Yes (EPILEPSY- LAST ONE WAS 15YRS AGO) - Surgical History Abdominal Surgery: Yes (SM BOWEL OBSTR) - Immunization History Immunization Up to Date: Yes - Suicide/Smoking/Psychosocial Hx Smoking History: Never smoked Have you smoked in the past 12 months: No Hx Alcohol Use: No Drug/Substance Use Hx: No Substance Use Type: Alcohol Hx Substance Use Treatment: No Respiratory Specific PMHX - Complaint Specific PMHX Angina: No Bronchitis: No Pneumonia: No Pulmonary Embolus: No TB (Tuberculosis): No Other History: childhood asthma Review of Systems - Review of Systems Able to Perform ROS?: Yes Is the patient limited Wolof proficient: No Constitutional: No: Symptoms Reported HEENTM: Yes: Symptoms Reported Respiratory: Yes: Cough *Physical Exam - Vital Signs Last Vital Signs Temp Pulse Resp BP Pulse Ox 98.9 F 100 H 20 115/85 98 02/03/18 08:20 02/03/18 08:20 02/03/18 08:20 02/03/18 08:20 02/03/18 08:20 - Physical Exam General Appearance: Yes: Nourished, Appropriately Dressed HEENT: positive: EOMI, JENNIFER, Normal ENT Inspection, TMs Normal, Pharynx Normal Neck: positive: Supple. negative: Tender Respiratory/Chest: positive: Lungs Clear, Normal Breath Sounds. negative: Chest Tender, Crackles, Rales, Rhonchi, Stridor, Wheezing Cardiovascular: positive: Regular Rhythm, Regular Rate Gastrointestinal/Abdominal: positive: Normal Bowel Sounds, Soft Integumentary: positive: Normal Color, Dry, Warm Neurologic: positive: Fully Oriented, Alert, Normal Mood/Affect, Normal Response , Motor Strength 5/5 Medical Decision Making - Medical Decision Making 02/03/18 09:13 cc: cough , no fever, son with same symptoms runny nose body aches non toxic well appearing lungs clear no wheezing dc with albuterol, rest, fluids pt agrees withplan of care all questions asked and answered at discharge. *DC/Admit/Observation/Transfer Diagnosis at time of Disposition: Upper respiratory infection, viral - Discharge Dispostion Disposition: HOME Condition at time of disposition: Good - Prescriptions Prescriptions: Albuterol Sulfate Inhaler - [Ventolin HFA Inhaler -] 1 - 2 inh PO Q4H #1 inhaler - Referrals - Patient Instructions Printed Discharge Instructions: Common Cold Additional Instructions: drink pleanty of water to stay well hydrated increase vitamin C and zinc take over the counter ibuprofen for pain as directed get pleanty of rest, you can also try over the counter Delsym for cough or continue theraflu follow with your primary care doctor in 2-3 days if worse - Post Discharge Activity
== END 2018-02-03 09:17 | disposition home or self-care (01) ==
LOC: JERFT 08:14
DX: J06.9 Acute upper respiratory infection, unspecified (principal); B97.89 Other viral agents as the cause of diseases classified elsewhere
CPT/HCPCS: 99281-25

== ENCOUNTER 2018-03-02 08:24 | Emergency (ER) | payer OTHER ==
[2018-03-02 08:35] VITALS: BP 136/84; PULSE 94; TEMP 98.9; BMI 41.5
--- NOTE | 2018-03-02 09:03 | PDOC ---
History of Present Illness - General History Source: Patient Exam Limitations: No Limitations - History of Present Illness Initial Comments: 03/02/18 10:11 The patient is a 37 year old female with a past medical history of anemia requiring blood transfusions who presents to the emergency department for evaluation of a 3 day history of dizziness. Patient reports worsening dizziness for the last 3 days. She reports mild alleviation to her symptoms when she sits upright. Patient reports associated double vision, blurry vision, abdominal cramping, diarrhea, and intermittent nausea. She describes her vision as almost blacking out. Patient reports heavy menstruations with moderate amounts of clotting. The patient denies chest pain, shortness of breath, headache, fevers, chills, constipation, and any urinary symptoms. Denies recent travel. Allergies: No known allergies Social History: No reported alcohol, cigarette, or drug use. Family history: Hypertension and diabetes. <Bhargavi Davey - Last Filed: 03/02/18 11:58> - History of Present Illness Initial Comments: 03/02/18 09:03 p/w lightheadeness <Dylan Valdez - Last Filed: 03/02/18 16:07> - General Chief Complaint: Vaginal Bleeding Stated Complaint: LIGHTHEADED Time Seen by Provider: 03/02/18 08:38 Past History <Bhargavi Davey - Last Filed: 03/02/18 11:58> - Past Medical History COPD: No Seizures: Yes (EPILEPSY- LAST ONE WAS 15YRS AGO) - Surgical History Abdominal Surgery: Yes (SM BOWEL OBSTR) - Reproductive History Is Patient Now?: No Cervical CA: No Dysfunctional Uterine Bleeding: No Ectopic : No Endometrial CA: No Polycystic Ovaries: Yes Tubal Ligation: No - Immunization History Immunization Up to Date: Yes - Suicide/Smoking/Psychosocial Hx Smoking History: Never smoked Have you smoked in the past 12 months: No Hx Alcohol Use: No Drug/Substance Use Hx: No Substance Use Type: Alcohol Hx Substance Use Treatment: No <Dylan Valdez - Last Filed: 03/02/18 16:07> - Past Medical History Allergies/Adverse Reactions: Allergies Allergy/AdvReac Type Severity Reaction Status Date / Time No Known Allergies Allergy Verified 03/02/18 08:28 Home Medications: Ambulatory Orders Albuterol Sulfate Inhaler - [Ventolin HFA Inhaler -] 1 - 2 inh PO Q4H PRN Ferrous Sulfate [Feosol] 325 mg PO ASDIR 03/02/18 Meclizine HCl [Antivert -] 25 mg PO TID #21 tablet 03/02/18 Review of Systems - Review of Systems Able to Perform ROS?: Yes Comments:: A complete review of 10 out of 10 review of systems is taken and is negative apart from what is previously mentioned below and in the HPI. <EdmarangeJoeymamie - Last Filed: 03/02/18 11:58> *Physical Exam - Vital Signs Last Vital Signs Temp Pulse Resp BP Pulse Ox 98.9 F 94 H 18 136/84 98 03/02/18 08:33 03/02/18 08:33 03/02/18 08:33 03/02/18 08:33 03/02/18 08:33 - Physical Exam Comments: Vitals: Triage Vital signs reviewed General Appearance: no acute distress, well nourished well developed, Head: Atraumatic, normocephalic Neck: Supple Chest Wall: Nontender Cardiac: Regular rate and rhythm, no murmurs, no rubs, no gallops, Lungs: Clear to auscultation bilateral, good air movement bilaterally, Abdomen: (+)Mild diffuse right upper quadrant discomfort which patient says is chronic Extremities: Full range of motion to all extremities, no cyanosis, clubbing, or edema Skin: Warm and dry, no rashes or lesions, no petechiae Psych: normal mood, normal affect <EdmarBhargavi cassidy - Last Filed: 03/02/18 11:58> - Vital Signs Last Vital Signs Temp Pulse Resp BP Pulse Ox 98.9 F 94 H 18 136/84 98 03/02/18 08:33 03/02/18 08:33 03/02/18 08:33 03/02/18 08:33 03/02/18 08:33 - Physical Exam Comments: Eyes: PERRLA, EOMI, no nystagmus Neuro: Cranial Nerves 2-12 grossly intact, Strength intact to all extremities, Sensation intact to all extremities,gait normal, normal finger to nose Psych: normal mood, normal affect <Dylan Valdez - Last Filed: 03/02/18 16:07> Heart Score/ECG Review - ECG Impressions Comment:: 03/02/18 13:12 EKG performed at 1012 demonstrates normal sinus rhythm no ST elevations or T- wave inversions. No evidence of WPW, Brugada, prolonged QT. Interpreted by me. <Dylan Valdez - Last Filed: 03/02/18 16:07> ED Treatment Course - LABORATORY CBC & Chemistry Diagram: 03/02/18 08:56 03/02/18 08:56 - ADDITIONAL ORDERS Additional order review: Laboratory Results 03/02/18 03/02/18 08:56 08:56 PTT (Actin FS) 29.6 Sodium 138 Potassium 4.3 Chloride 104 Carbon Dioxide 27 Anion Gap 7 L BUN 8 Creatinine 0.9 Creat Clearance w eGFR > 60 Random Glucose 89 Calcium 8.5 Total Bilirubin 0.3 AST 11 L ALT 18 Alkaline Phosphatase 74 Total Protein 8.3 H Albumin 3.3 L 03/02/18 08:56 RBC 4.81 MCV 78.3 L MCHC 34.6 RDW 14.6 MPV 7.6 Neutrophils % 70.1 Lymphocytes % 23.1 D Monocytes % 4.8 Eosinophils % 1.4 Basophils % 0.6 - Medications Given in the ED: ED Medications Discontinued Medications Generic Name Dose Route Start Last Admin Trade Name Freq PRN Reason Stop Dose Admin Acetaminophen 1,000 mg 03/02/18 09:04 03/02/18 09:29 Ofirmev Injection - IVPB 03/02/18 09:05 1,000 mg ONCE ONE Administration Sodium Chloride 1,000 ml 03/02/18 09:04 03/02/18 09:29 Normal Saline - IV 03/02/18 09:05 1,000 ml ONCE ONE Administration <Bhargavi Davey - Last Filed: 03/02/18 11:58> - LABORATORY CBC & Chemistry Diagram: 03/02/18 08:56 03/02/18 08:56 <Dylan Valdez - Last Filed: 03/02/18 16:07> Medical Decision Making - Medical Decision Making The patient is a 37 year old female with a past medical history of anemia requiring blood transfusions who presents to the emergency department for evaluation of a 3 day history of dizziness. Plan: EKG IV fluids Tylenol <Bhargavi Davey - Last Filed: 03/02/18 11:58> - Medical Decision Making 3 day history of lightheadedness patient has felt like this in the past but in the context of anemia from heavy vaginal bleeding Here in the emergency department today labs are within normal limits EKG nonischemic, troponin negative status post IV fluids meclizine patient feels much better still with very minimal lightheadedness we discussed a CAT scan the patient refused secondary to radiation exposure and that she is feeling better I provided her with neurology follow-up as well as a prescription for meclizine Her neuro exam was normal and pt. was walking comfortably She'll return to the ED for any severe worsening symptoms otherwise she'll follow up with neurology this week Findings, the need for follow-up and strict return instructions discussed with patient. <Dylan Valdez - Last Filed: 03/02/18 16:07> *DC/Admit/Observation/Transfer <Bhargavi Davey - Last Filed: 03/02/18 11:58> - Discharge Dispostion Decision to Admit order: No <Dylan Valdez - Last Filed: 03/02/18 16:07> Diagnosis at time of Disposition: Lightheaded - Discharge Dispostion Disposition: HOME Condition at time of disposition: Good - Prescriptions Prescriptions: Meclizine HCl [Antivert -] 25 mg PO TID #21 tablet - Referrals Referrals: Duke Ramirez [Primary Care Provider] - Yanick Mariano DO [Staff Physician] - - Patient Instructions Printed Discharge Instructions: DI for Dizziness-Nonvertigo Additional Instructions: Drink plenty of fluids. Take meclizine as prescribed. Follow-up with your doctor this week. Follow-up with this week. Return to the emergency department for any severe worsening symptoms or for any concerns.
[2018-03-02] MEDS ORDERED: ACETAMINOPHEN 1000 MG/100 ML VIAL (NON FORMULARY) IVPB ONE (09:04)
[2018-03-02] MEDS ORDERED: SODIUM CHLORIDE 0.9% 1000 ML INFUS.BAG IV ONE (09:04)
[2018-03-02] MEDS ORDERED: ACETAMINOPHEN INJECTION 100 ML IVPB ONE (09:13)
[2018-03-02 09:44] LABS: BASO % 0.6 % (0-2.0); EOS % 1.4 % (0-4.5); HEMATOCRIT 37.7 % (32.4-45.2); LYMPH % 23.1 % (8-40); MCH 27.1 pg (25.7-33.7); MCHC 34.6 g/dl (32.0-36.0); MEAN CELL VOLUME 78.3 fl (80-96); MEAN PLT VOLUME 7.6 fl (7.5-11.1); MONO % 4.8 % (3.8-10.2); NEUT % 70.1 % (42.8-82.8); PLATELET COUNT 396 K/MM3 (134-434); RBC 4.81 M/mm3 (3.60-5.2); RDW 14.6 % (11.6-15.6); WHITE BLOOD COUNT 7.1 K/mm3 (4.0-10.0)
[2018-03-02 10:04] LABS: ALBUMIN 3.3 g/dl (3.4-5.0); ALK PHOS 74 U/L (45-117); ANION GAP 7 MMOL/L (8-16); BILIRUBIN,TOTAL 0.3 mg/dL (0.2-1); BLOOD UREA NITROGEN 8 mg/dL (7-18); CALCIUM 8.5 mg/dL (8.5-10.1); CHLORIDE 104 mmol/L (98-107); CO2 27 mmol/L (21-32); CREATININE 0.9 mg/dL (0.55-1.3); GLUCOSE,RANDOM 89 mg/dL (74-106); POTASSIUM 4.3 mmol/L (3.5-5.1); SGOT/AST 11 U/L (15-37); SGPT/ALT 18 U/L (13-61); SODIUM 138 mmol/L (136-145); TOT PROT 8.3 g/dl (6.4-8.2)
[2018-03-02] MEDS ORDERED: DEXTROSE 50%-WATER - 25 GM/50 ML VIAL IVPUSH ONE (10:10)
[2018-03-02 10:14] LABS: URINE APPEARANCE SLCLOUDY; URINE BILIRUBIN NEGATIVE (<2.0 mg/dL); URINE COLOR RED; URINE GLUCOSE (UA) NEGATIVE (NEGATIVE); URINE KETONE NEGATIVE (NEGATIVE); URINE LEUK ESTERASE NEGATIVE (NEGATIVE); URINE NITRITE NEGATIVE (NEGATIVE); URINE PROTEIN 2+ (NEGATIVE); URINE UROBILINOGEN NEGATIVE mg/dL (0.2-1.0)
[2018-03-02] MEDS ORDERED: DEXTROSE 50%-WATER 25 GM/50 ML DISP.SYRIN ONE ×2 (10:14→10:19)
--- NOTE | 2018-03-02 10:24 | EKG ---
Test Reason : Blood Pressure : / mmHG Vent. Rate : 077 BPM Atrial Rate : 077 BPM P-R Int : 134 ms QRS Dur : 072 ms QT Int : 402 ms P-R-T Axes : 028 023 024 degrees QTc Int : 454 ms NORMAL SINUS RHYTHM NORMAL ECG WHEN COMPARED WITH ECG OF 21-JUL-2016 23:20, NO SIGNIFICANT CHANGE WAS FOUND Confirmed by BRAYDON SANTOS MD ([id number]) on 03/02/2018 10:23:53 AM Referred By: Confirmed By:BRAYDON SANTOS MD
[2018-03-02 10:59] LABS: EPI CELLS RARE /HPF (FEW); URINE BACTERIA RARE /hpf (NONE SEEN); URINE MUCUS RARE
[2018-03-02] MEDS ORDERED: MECLIZINE HCL 25 MG TABLET (FP) PO ONE (12:10)
[2018-03-02] MEDS ORDERED: MECLIZINE HCL 25 MG TABLET (FP) ONE (12:24)
== END 2018-03-02 14:15 | disposition home or self-care (01) ==
LOC: JER 08:24
DX: R42 Dizziness and giddiness (principal); Z86.2 Personal history of diseases of the blood and blood-forming organs and certain disorders involving the immune mechanism; Z86.69 Personal history of other diseases of the nervous system and sense organs
CPT/HCPCS: 36415; 80053; 81003; 81015; 82962; 84484; 84702; 85025; 85730; 86850; 86900; 86901; 87086; 93005; 93010; 99283-25; J0131; J7030

== ENCOUNTER 2018-05-02 14:15 | Emergency (ER) | payer OTHER ==
[2018-05-02 14:26] VITALS: BP 132/78; PULSE 102; TEMP 97.8; BMI 42.5
--- NOTE | 2018-05-02 16:31 | PDOC ---
Suture Removal/Wound Check HPI - History of Present Illness Chief Complaint: Wound Stated Complaint: WOUND CHECK Time Seen by Provider: 05/02/18 15:10 History Source: Yes: Patient Exam Limitations: Yes: No Limitations Treated at: Other ED ([facility]) - Previous ED Treatment Type of procedure performed on last visit: Yes: I&D of Abscess Tetanus Immunization: Yes: Up to Date - Onset of Previous Treatment Date of Occurence: 04/28/18 Past History - Past Medical History Allergies/Adverse Reactions: Allergies Allergy/AdvReac Type Severity Reaction Status Date / Time No Known Allergies Allergy Verified 05/02/18 14:20 Home Medications: Ambulatory Orders Albuterol Sulfate Inhaler - [Ventolin HFA Inhaler -] 1 - 2 inh PO Q4H PRN Ferrous Sulfate [Feosol] 325 mg PO ASDIR 03/02/18 COPD: No GI Disorders: Yes (INTERNAL HERNIA) Seizures: Yes (EPILEPSY- LAST ONE WAS 15YRS AGO) - Surgical History Abdominal Surgery: Yes (SM BOWEL OBSTR) - Reproductive History Cervical CA: No Dysfunctional Uterine Bleeding: No Ectopic : No Endometrial CA: No Polycystic Ovaries: Yes Tubal Ligation: No - Immunization History Immunization Up to Date: Yes - Suicide/Smoking/Psychosocial Hx Smoking History: Never smoked Have you smoked in the past 12 months: No Hx Alcohol Use: No Drug/Substance Use Hx: No Substance Use Type: Alcohol Hx Substance Use Treatment: No Suture Removal/Wound Check PE - Physical Exam Laceration/Wound Check Symptoms: reports: None Current Severity Level: None Pain Localization: None Pain Radiation: None *Review of Systems - Review of Systems Able to Perform ROS?: Yes Integumentary: Yes: See HPI All Other Systems: Reviewed and Negative *Physical Exam - Vital Signs Last Vital Signs Temp Pulse Resp BP Pulse Ox 97.8 F 102 H 18 132/78 96 05/02/18 14:21 05/02/18 14:21 05/02/18 14:21 05/02/18 14:21 05/02/18 14:21 - Physical Exam General Appearance: Yes: Appropriately Dressed. No: Apparent Distress Lymphatic: negative: Adenopathy (right axilla) Integumentary: positive: Other (Spontaneous removal of I&D packing noted. I&D site has closed and is well appearing. There is no erythema or tenderness to the right nipple or right areola. There is no discharge from the nipple.) Moderate Sedation - Procedure Monitoring Vital Signs: Procedure Monitoring Vital Signs Temperature 97.8 F 05/02/18 14:21 Pulse Rate 102 H 05/02/18 14:21 Respiratory Rate 18 05/02/18 14:21 Blood Pressure 132/78 05/02/18 14:21 O2 Sat by Pulse Oximetry (%) 96 05/02/18 14:21 Medical Decision Making - Medical Decision Making 05/02/18 16:33 A/P: 37-year-old woman with visit for wound check Patient had I&D breast abscess performed 04/28 at [facility] Breast exam performed with JOAQUIN Thomas at bedside Right breast without erythema or tenderness No palpable masses present Packing from I&D site spontaneously removed I and D site is closed Unable to express any discharge from the nipple Discharge home to follow-up with pressurization as previously scheduled on 05/05. *DC/Admit/Observation/Transfer Diagnosis at time of Disposition: Wound check, abscess - Discharge Dispostion Disposition: HOME Condition at time of disposition: Stable Decision to Admit order: No - Referrals Referrals: Duke Ramirez [Primary Care Provider] - - Patient Instructions Additional Instructions: Follow-up with the breast surgeon as previously scheduled. Return to emergency department for any concerns. - Post Discharge Activity
== END 2018-05-02 16:39 | disposition home or self-care (01) ==
LOC: JERFT 14:15
DX: Z48.817 Encounter for surgical aftercare following surgery on the skin and subcutaneous tissue (principal); N61.1 Abscess of the breast and nipple
CPT/HCPCS: 99281-25

== ENCOUNTER 2018-07-23 15:19 | Emergency (ER) | payer OTHER ==
[2018-07-23 15:25] VITALS: BP 139/70; PULSE 118; TEMP 98.2; BMI 43.4
[2018-07-23] MEDS ORDERED: ALBUTEROL SO4 2.5/IPRATROPIUM 0.5 INH SOL 3 ML VIAL.NEB. NEB ONE ×4 (15:42→17:05)
[2018-07-23] MEDS ORDERED: predniSONE 20 MG TABLET (UD) PO ONE (15:42)
[2018-07-23] MEDS ORDERED: predniSONE 20 MG TABLET (UD) ONE (15:45)
--- NOTE | 2018-07-23 15:49 | PDOC ---
History of Present Illness - General Chief Complaint: Cold Symptoms Stated Complaint: COUGHING Time Seen by Provider: 07/23/18 15:24 History Source: Patient Exam Limitations: No Limitations - History of Present Illness Initial Comments: 07/23/18 15:48 came fore evaluation of worsening cough/ feltfeverish, and weak. SOn has been sick with same but this caused her asthma to exacerbate 07/23/18 15:53 Timing/Duration: reports: getting worse Severity: reports: moderate Associated Symptoms: reports: cough, dizziness, fever/chills, lightheadedness, nasal congestion. denies: sore throat Past History - Travel Traveled outside of the country in the last 30 days: No Close contact w/someone who was outside of country & ill: No - Past Medical History Allergies/Adverse Reactions: Allergies Allergy/AdvReac Type Severity Reaction Status Date / Time No Known Allergies Allergy Verified 07/23/18 15:23 Home Medications: Ambulatory Orders Albuterol Sulfate Inhaler - [Ventolin HFA Inhaler -] 1 - 2 inh PO Q4H #1 inhaler 07/23/18 predniSONE [Deltasone -] 20 mg PO BID #8 tablet 07/23/18 COPD: No GI Disorders: Yes (INTERNAL HERNIA) Seizures: Yes (EPILEPSY- LAST ONE WAS 15YRS AGO) - Surgical History Abdominal Surgery: Yes (SM BOWEL OBSTR) - Reproductive History Cervical CA: No Dysfunctional Uterine Bleeding: No Ectopic : No Endometrial CA: No Polycystic Ovaries: Yes Tubal Ligation: No - Immunization History Immunization Up to Date: Yes - Suicide/Smoking/Psychosocial Hx Smoking History: Never smoked Have you smoked in the past 12 months: No Information on smoking cessation initiated: No Hx Alcohol Use: No Drug/Substance Use Hx: No Substance Use Type: Alcohol Hx Substance Use Treatment: No Respiratory Specific PMHX - Complaint Specific PMHX Angina: No Bronchitis: No Pneumonia: No Pulmonary Embolus: No TB (Tuberculosis): No Review of Systems - Review of Systems Able to Perform ROS?: Yes Is the patient limited Zambian proficient: Yes Constitutional: Yes: Symptoms Reported, See HPI HEENTM: Yes: Symptoms Reported, See HPI Respiratory: Yes: Symptoms reported, See HPI, Cough, Shortness of Breath, SOB with Exertion, Wheezing Musculoskeletal: Yes: Symptoms Reported, See HPI Integumentary: Yes: See HPI. No: Symptoms Reported Neurological: Yes: Symptoms reported, See HPI All Other Systems: Reviewed and Negative *Physical Exam - Vital Signs Last Vital Signs Temp Pulse Resp BP Pulse Ox 98.2 F 118 H 20 139/70 100 07/23/18 15:21 07/23/18 15:21 07/23/18 15:21 07/23/18 15:21 07/23/18 15:21 - Physical Exam General Appearance: Yes: Nourished, Appropriately Dressed, Apparent Distress, Mild Distress, Moderate Distress HEENT: positive: JENNIFER, Normal ENT Inspection, TMs Normal, Nasal Congestion, Rhinorrhea, Sinus Tenderness. negative: Pharynx Normal Neck: positive: Supple, Lymphadenopathy (R), Lymphadenopathy (L). negative: Tender Respiratory/Chest: positive: Rhonchi, Wheezing. negative: Lungs Clear (course and loud inspiratory and expiratory rub grunts with some intermittent wheezing. Inspiration causes significant cough), Normal Breath Sounds Gastrointestinal/Abdominal: positive: Normal Bowel Sounds, Tender, Soft Musculoskeletal: positive: Normal Inspection Extremity: positive: Normal Capillary Refill, Normal Inspection, Normal Range of Motion Integumentary: positive: Normal Color, Dry, Warm, Pale Neurologic: positive: senior project manager engineering II-XII NML intact, Fully Oriented, Alert, Normal Mood/ Affect, Normal Response, Motor Strength 5/5 Progress Note - Progress Note Progress Note: After Prednisone 60mg PO and Third Duoneb treatment and breath sounds much improved. Influenza testing NEGATIVE. We will continue albuterol nebulizers and prednisone and have follow-up with PMD *DC/Admit/Observation/Transfer Diagnosis at time of Disposition: Upper respiratory infection, viral - Discharge Dispostion Disposition: HOME Condition at time of disposition: Stable Decision to Admit order: No - Prescriptions Prescriptions: Albuterol Sulfate Inhaler - [Ventolin HFA Inhaler -] 1 - 2 inh PO Q4H #1 inhaler predniSONE [Deltasone -] 20 mg PO BID #8 tablet - Referrals Referrals: Duke Ramirez [Primary Care Provider] - - Patient Instructions Printed Discharge Instructions: DI for Viral Upper Respiratory Infection -- Adult Additional Instructions: Rest, drink lots of fluids: Teas, water, soups, Pedialyte Saltwater gargles Steamy showers/seem to face break up mucus Avoid contact with others until fevers and cough resolved Lots of handwashing and good hygiene Continue [id number] medications for symptomatic relief Tylenol or Motrin for fever and pain Continue albuterol nebulizers every 4-6 hours for the next 2 days then as needed for continued cough Prednisone as directed until completed Followup with private physician in one to 2 days Return to emergency department / pediatric hospital for worsened symptoms, fevers, dehydration - Post Discharge Activity
== END 2018-07-23 17:24 | disposition home or self-care (01) ==
LOC: JERFT 15:19
PROC: 3E0F7GC Introduction of Other Therapeutic Substance into Respiratory Tract, Via Natural or Artificial Opening (ICD-10-PCS; principal; 2018-07-23)
PROC: 3E0F7GC Introduction of Other Therapeutic Substance into Respiratory Tract, Via Natural or Artificial Opening (ICD-10-PCS; 2018-07-23)
PROC: 3E0F7GC Introduction of Other Therapeutic Substance into Respiratory Tract, Via Natural or Artificial Opening (ICD-10-PCS; 2018-07-23)
DX: J06.9 Acute upper respiratory infection, unspecified (principal); B97.89 Other viral agents as the cause of diseases classified elsewhere
CPT/HCPCS: 87804; 99281-25

== ENCOUNTER 2018-07-30 15:30 | Emergency (ER) | payer OTHER ==
[2018-07-30 15:50] VITALS: BP 123/71; PULSE 94; TEMP 98.4; BMI 43.0
[2018-07-30] MEDS ORDERED: SILVER SULFADIAZINE 1% TOP CREAM 50 GM JAR TP ONE ×2 (16:13→16:19)
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
== END 2018-07-30 16:44 | disposition home or self-care (01) ==
LOC: JERFT 15:30
PROC: 2W2TX4Z Dressing of Left Foot using Bandage (ICD-10-PCS; principal; 2018-07-30)
PROC: 2W2SX4Z Dressing of Right Foot using Bandage (ICD-10-PCS; 2018-07-30)
DX: T25.222A Burn of second degree of left foot, initial encounter (principal); T25.121A Burn of first degree of right foot, initial encounter; X10.2XXA Contact with fats and cooking oils, initial encounter; Y93.G3 Activity, cooking and baking; Y92.030 Kitchen in apartment as the place of occurrence of the external cause; Y99.8 Other external cause status
CPT/HCPCS: 99281-25

== ENCOUNTER 2018-11-02 14:46 | Emergency (ER) | payer OTHER ==
[2018-11-02 14:55] VITALS: BP 133/82; PULSE 75; TEMP 98.9; BMI 42.3
--- NOTE | 2018-11-02 14:56 | PDOC ---
Rapid Medical Evaluation Chief Complaint: Back Pain Time Seen by Provider: 11/02/18 14:54 Medical Evaluation: Allergies Allergy/AdvReac Type Severity Reaction Status Date / Time No Known Allergies Allergy Verified 07/23/18 15:23 11/02/18 14:54 This patient had a brief in-person evaluation by me. cc: s/p fall with mid back pain today denies head strike. Denies dizziness before or after fall PE: NAD unlabored breathing no mid spinal tenderness + tenderness over right mid back Orders: urine preg This patient will proceed to Ed for further evaluation Discharge Disposition - Diagnosis Back pain - Referrals - Patient Instructions - Post Discharge Activity
--- NOTE | 2018-11-02 15:16 | PDOC ---
History of Present Illness - General Chief Complaint: Back Pain Stated Complaint: FALL Time Seen by Provider: 11/02/18 14:54 History Source: Patient Exam Limitations: No Limitations - History of Present Illness Occurred: reports: this morning Severity: reports: mild, moderate Past History - Past Medical History Allergies/Adverse Reactions: Allergies Allergy/AdvReac Type Severity Reaction Status Date / Time No Known Allergies Allergy Verified 11/02/18 14:55 Home Medications: Ambulatory Orders Albuterol Sulfate Inhaler - [Ventolin HFA Inhaler -] 1 - 2 inh PO Q4H #1 inhaler 07/23/18 predniSONE [Deltasone -] 20 mg PO BID #8 tablet 07/23/18 Silver Sulfadiazine 1% Top Cr [Silvadene] 1 applic TP DAILY #1 jar 07/30/18 Cyclobenzaprine HCl 10 mg PO Q8H PRN #14 tablet 11/02/18 Naproxen [Naprosyn -] 500 mg PO BID #30 tablet 11/02/18 COPD: No GI Disorders: Yes (INTERNAL HERNIA) Seizures: Yes (EPILEPSY- LAST ONE WAS 15YRS AGO) - Surgical History Abdominal Surgery: Yes (SM BOWEL OBSTR) - Reproductive History Cervical CA: No Dysfunctional Uterine Bleeding: No Ectopic : No Endometrial CA: No Polycystic Ovaries: Yes Tubal Ligation: No - Immunization History Immunization Up to Date: Yes - Suicide/Smoking/Psychosocial Hx Smoking History: Never smoked Have you smoked in the past 12 months: No Information on smoking cessation initiated: No Hx Alcohol Use: No Drug/Substance Use Hx: No Substance Use Type: Alcohol Hx Substance Use Treatment: No Review of Systems - Review of Systems Able to Perform ROS?: Yes Is the patient limited [place]ese proficient: Yes Constitutional: Yes: Symptoms Reported HEENTM: No: Symptoms Reported Respiratory: No: Symptoms reported Musculoskeletal: Yes: Symptoms Reported, See HPI, Back Pain, Muscle Pain Integumentary: No: Symptoms Reported All Other Systems: Reviewed and Negative *Physical Exam - Vital Signs Last Vital Signs Temp Pulse Resp BP Pulse Ox 98.9 F 75 18 133/82 99 11/02/18 14:53 11/02/18 14:53 11/02/18 14:53 11/02/18 14:53 11/02/18 14:53 - Physical Exam General Appearance: Yes: Nourished, Appropriately Dressed, Apparent Distress, Mild Distress HEENT: positive: JENNIFER, Normal ENT Inspection, TMs Normal, Pharynx Normal. negative: Rhinorrhea Neck: positive: Supple. negative: Tender Respiratory/Chest: positive: Chest Tender (posterior chest wall, at approximately T11-12. With mild spasm noted bilaterally. Has no true vertebral spine tenderness, crepitus or step-offs.), Lungs Clear Gastrointestinal/Abdominal: positive: Soft. negative: Tender Musculoskeletal: positive: Normal Inspection, Decreased Range of Motion, Muscle Spasm (low back). negative: CVA Tenderness ( area), Vertebral Tenderness Extremity: negative: Normal Range of Motion (some limited range of motion secondary to tenderness to mid thoracic spine) Integumentary: positive: Normal Color, Dry, Warm. negative: Swelling, Ecchymosis, Bruising Neurologic: positive: administrative hearing officer II-XII NML intact, Fully Oriented, Alert, Normal Mood/ Affect, Normal Response, Motor Strength 5/5 Progress Note - Progress Note Progress Note: Status post fall with thoracic muscle strain. Has no bone tenderness and patient agrees x-ray is not indicated at this time. Has urinated since injury and states urine is without any discoloration/rustiness or bleeding indicating any kidney issue. We'll treat with NSAIDs and cyclobenzaprine *DC/Admit/Observation/Transfer Diagnosis at time of Disposition: Upper back strain Qualifiers: Encounter type: initial encounter Qualified Code(s): S29.012A - Strain of muscle and tendon of back wall of thorax, initial encounter Fall Qualifiers: Encounter type: initial encounter Qualified Code(s): W19.XXXA - Unspecified fall, initial encounter - Discharge Dispostion Disposition: HOME Condition at time of disposition: Stable Decision to Admit order: No - Referrals Referrals: Duke Ramirez [Primary Care Provider] - - Patient Instructions Printed Discharge Instructions: DI for Back Strain or Sprain Additional Instructions: Rest, no heavy lifting or exercise until pain is resolved Hot soaks to neck and low back as often as possible/hot showers or Jacuzzis No massage or therapy until spasm is gone Continue Naprosyn 500 mg tablet, 1 tablet every 8 hours for the next 3 days then as needed for pain and swelling Cyclobenzaprine 1-10mg every 8 hours as needed for spasm If not significant improvement within 24 hours with medication and rest regime, followup with private physician for change in medications and /or therapy. - Post Discharge Activity
[2018-11-02] MEDS ORDERED: KETOROLAC TROMETHAMINE 60 MG/2 ML VIAL IM ONE (15:26)
[2018-11-02] MEDS ORDERED: KETOROLAC TROMETHAMINE 60 MG/2 ML VIAL ONE (15:28)
== END 2018-11-02 15:35 | disposition home or self-care (01) ==
LOC: JERFT 14:46
PROC: 3E0233Z Introduction of Anti-inflammatory into Muscle, Percutaneous Approach (ICD-10-PCS; principal; 2018-11-02)
DX: S29.012A Strain of muscle and tendon of back wall of thorax, initial encounter (principal); W19.XXXA Unspecified fall, initial encounter; Y93.89 Activity, other specified; Y92.89 Other specified places as the place of occurrence of the external cause; Y99.8 Other external cause status
CPT/HCPCS: 96372; 99281-25

== ENCOUNTER 2019-01-04 16:06 | Emergency (ER) | payer OTHER ==
[2019-01-04 16:19] VITALS: BP 127/88; PULSE 95; TEMP 99; BMI 42.4
--- NOTE | 2019-01-04 16:19 | PDOC ---
Rapid Medical Evaluation Medical Evaluation: Allergies Allergy/AdvReac Type Severity Reaction Status Date / Time No Known Allergies Allergy Verified 11/02/18 14:55 I have performed a brief in-person evaluation of this patient. The patient presents with a chief complaint of: has hx of R breast tumor (benign ); c/o R breast/chest heaviness from 2 days ago along with RUQ pain; is on abx for R breast infection; is on Depo Pertinent physical exam findings: In nad; breast exam deferred; poor breath sounds I have ordered the following: Labs, ekg, cxr The patient will proceed to the ED for further evaluation. 01/04/19 16:15
[2019-01-04 16:51] LABS: BASO % 0.5 % (0-2.0); EOS % 1.6 % (0-4.5); HEMATOCRIT 35.5 % (32.4-45.2); HEMOGLOBIN 11.8 GM/dL (10.7-15.3); LYMPH % 35.4 % (8-40); MCH 25.8 pg (25.7-33.7); MCHC 33.3 g/dl (32.0-36.0); MEAN CELL VOLUME 77.3 fl (80-96); MEAN PLT VOLUME 7.7 fl (7.5-11.1); MONO % 7.5 % (3.8-10.2); PLATELET COUNT 371 K/MM3 (134-434); RBC 4.59 M/mm3 (3.60-5.2); RDW 15.8 % (11.6-15.6); WHITE BLOOD COUNT 7.1 K/mm3 (4.0-10.0)
--- NOTE | 2019-01-04 17:00 | PDOC ---
History of Present Illness - General Chief Complaint: Chest Pain Stated Complaint: CHEST/UPPER BACK PAIN Time Seen by Provider: 01/04/19 16:15 History Source: Patient Exam Limitations: No Limitations - History of Present Illness Initial Comments: 01/04/19 16:59 HPI: 38yo woman with pmh R breast tumor (benign) and crohn's disease presenting with R breast/chest heaviness and sharp, non-radiating pain for three days. Pt complains of chronic breast pain, acutely worsening over the weekend. Located in RUQ of right breast and right upper back. Followed by breast doctor ,Dr. Eaton, at [facility]. Reports having nipple discharge for which she was started on antibiotics two weeks ago, she does not recall what antibiotics she was on. After she finished the course she experienced a recurrence of discharge 1 week ago. Denies fevers / chills / shortness of breath, headache, nausea / vomiting. Endorses lightheadedness. KNDA Meds per chart (+Depo) PMH as above PSH per chart LMP: End of October Past History - Travel Traveled outside of the country in the last 30 days: No Close contact w/someone who was outside of country & ill: No - Past Medical History Allergies/Adverse Reactions: Allergies Allergy/AdvReac Type Severity Reaction Status Date / Time No Known Allergies Allergy Verified 01/04/19 16:19 Home Medications: Ambulatory Orders Albuterol Sulfate Inhaler - [Ventolin HFA Inhaler -] 1 - 2 inh PO Q4H #1 inhaler 07/23/18 predniSONE [Deltasone -] 20 mg PO BID #8 tablet 07/23/18 Silver Sulfadiazine 1% Top Cr [Silvadene] 1 applic TP DAILY #1 jar 07/30/18 Cyclobenzaprine HCl 10 mg PO Q8H PRN #14 tablet 11/02/18 Naproxen [Naprosyn -] 500 mg PO BID #30 tablet 11/02/18 COPD: No GI Disorders: Yes (INTERNAL HERNIA) Seizures: Yes (EPILEPSY- LAST ONE WAS 15YRS AGO) Other medical history: CYST TO RIGHT BREAST - Surgical History Abdominal Surgery: Yes (SM BOWEL OBSTR) - Reproductive History Cervical CA: No Dysfunctional Uterine Bleeding: No Ectopic : No Endometrial CA: No Polycystic Ovaries: Yes Tubal Ligation: No - Immunization History Immunization Up to Date: Yes - Suicide/Smoking/Psychosocial Hx Smoking History: Never smoked Have you smoked in the past 12 months: No Hx Alcohol Use: No Drug/Substance Use Hx: No Substance Use Type: Alcohol Hx Substance Use Treatment: No Review of Systems - Review of Systems Able to Perform ROS?: Yes Is the patient limited Divehi proficient: No Constitutional: No: Chills, Fever, Night Sweats, Weakness HEENTM: No: Eye Pain, Blurred Vision, Nose Pain, Nose Congestion, Throat Pain, Mouth Pain Respiratory: No: Cough, Shortness of Breath, Wheezing Cardiac (ROS): Yes: Chest Pain, Lightheadedness. No: Edema, Irregular Heart Rate, Palpitations, Syncope, Chest Tightness ABD/GI: No: Constipated, Diarrhea, Nausea, Poor Appetite, Poor Fluid Intake, Rectal Bleeding, Vomiting : No: Burning, Discharge, Frequency, Incontinence, Pain Musculoskeletal: Yes: Back Pain (right upper back behind breast). No: Joint Pain, Muscle Pain, Muscle Weakness Integumentary: Yes: Lumps (breast). No: Erythema, Pruritus, Rash Neurological: No: Headache, Numbness, Tingling, Weakness All Other Systems: Reviewed and Negative *Physical Exam - Vital Signs Last Vital Signs Temp Pulse Resp BP Pulse Ox 99.0 F 95 H 16 127/88 97 01/04/19 16:12 01/04/19 16:12 01/04/19 16:12 01/04/19 16:12 01/04/19 16:12 - Physical Exam Comments: 01/04/19 18:08 Vitals reviewed, AFVSS Gen: obese woman, laying in bed, no acute distress HEENT: normocaphalic, atraumatic, EOMI, MMM, trachea midline CV: RRR, nl s1/s2, no murmurs rubs or gallops appreciated Pulm: CTABL, normal work of breathing, speaking full sentences, no wheezes / rales / rhonchi Abd: soft, nontender, nondistended Ext: WWP, no clubbing / cyanosis / edema Neuro: alert and oriented, MAEE, CN grossly intact Breast Exam (performed by Dr. Tovar): no rash / indentation / mass / peau d' orange / discharge, nontender with density noted at medial upper quadrants bilaterally. ED Treatment Course - LABORATORY CBC & Chemistry Diagram: 01/04/19 16:32 01/04/19 16:19 - ADDITIONAL ORDERS Additional order review: 01/04/19 16:32 RBC 4.59 MCV 77.3 L MCHC 33.3 RDW 15.8 H MPV 7.7 Neutrophils % 55.0 D Lymphocytes % 35.4 D Monocytes % 7.5 Eosinophils % 1.6 Basophils % 0.5 Medical Decision Making - Medical Decision Making 01/04/19 18:35 38yo woman with pmh R breast tumor (benign) and crohn's disease presenting with R breast/chest heaviness and sharp, non-radiating pain for three days. Afebrile , recent infection with reported recurrence, cancer. Concerning for infection vs cancer pain vs r/o ACS. -EKG, CXR -CBC, CMP, Cardiac Profile, Pt/INR -Breast Doctor: [facility] ( ) -EKG normal, NSR, normal axis, normal intervals, without ischemic changes, unchanged from prior -CXR pending -CBC without leukocytosis -Troponin negative -PT/INR unremarkable -CMP without electrolyte derrangements, normal liver enzymes -Negative serum -Pain responding well to toradol 01/04/19 18:56 -CXR without infiltrate / effusion Dispo: home with followup with breast doctor and PCP *DC/Admit/Observation/Transfer Diagnosis at time of Disposition: Breast pain in female - Discharge Dispostion Disposition: HOME Condition at time of disposition: Stable Decision to Admit order: No - Referrals Referrals: Duke Ramirez [Primary Care Provider] - - Patient Instructions Printed Discharge Instructions: DI for Atypical Chest Pain, DI for Breast Pain (Mastalgia) Additional Instructions: You were seen and evaluated in the [facility] for chest pain. Continue to take over the counter pain medications as per label instructions for pain. Please follow up with your primary care doctor within the next week. Also please call your breast doctor tomorrow to schedule an evaluation. Return to the the emergency department for any new or concerning symptoms. These include but are not limited to; worsening pain, discharge, development of fever, nausea / vomiting, as these may be signs of worsening infection. - Post Discharge Activity
[2019-01-04 17:10] LABS: INR 1.13 (0.83-1.09); PROTHROMBIN TIME (PATIENT) 13.4 SEC (9.7-13.0)
[2019-01-04 17:13] LABS: ACTIVATED PTT 32.8 SECONDS (25.2-36.5)
[2019-01-04 17:16] LABS: ALBUMIN 3.5 g/dl (3.4-5.0); ALK PHOS 76 U/L (45-117); ANION GAP 9 MMOL/L (8-16); BILIRUBIN,TOTAL 0.3 mg/dL (0.2-1); BLOOD UREA NITROGEN 8.9 mg/dL (7-18); CALCIUM 9.1 mg/dL (8.5-10.1); CHLORIDE 107 mmol/L (98-107); CO2 25 mmol/L (21-32); CREATININE 0.8 mg/dL (0.55-1.3); GLUCOSE,RANDOM 82 mg/dL (74-106); POTASSIUM 4.3 mmol/L (3.5-5.1); SGOT/AST 12 U/L (15-37); SGPT/ALT 19 U/L (13-61); SODIUM 140 mmol/L (136-145); TOT PROT 7.8 g/dl (6.4-8.2)
--- NOTE | 2019-01-04 17:47 | PDOC ---
Attending Attestation - Resident Resident Name: MengSean - ED Attending Attestation I have performed the following: I have examined & evaluated the patient, The case was reviewed & discussed with the resident, I agree w/resident's findings & plan, Exceptions are as noted - HPI HPI: 01/04/19 17:42 this 38 yo female recently treated for breast infection. She saw Dr Jc Eaton a breast surgeon who started jamshid antibiotics.Today she is c/o actual breast and chest waall pain 01/04/19 17:47 - Physicial Exam PE: 01/04/19 17:55 38-year-old female presents with right breast and right scapular pain that is increasing since this weekend, she denies any trauma obese 38 yo in no acute distress no breast abscess seen,no fluctuance or cellulitis tenderness in rt trapezius and scapula area with palpation but no skin changes, no erythema, no appreciable wounds 01/04/19 18:30 - Medical Decision Making 01/04/19 17:48 will obtain trop,ekg and call her breast specialist 01/04/19 18:01 01/04/19 18:30 ekg nsr @ 92 bpm, inverted t waves V1,V2 no changes from prior ekg 01/04/19 19:00 neg trop neg test chemistries,cbc essentially unremarkable imp musculoskelatal pain,breast pain pt will follow up with Dr Nba Eaton, breast surgeon cxr napd
[2019-01-04] MEDS ORDERED: KETOROLAC TROMETHAMINE 15 MG/ML VIAL IVPUSH ONE (18:04)
[2019-01-04] MEDS ORDERED: KETOROLAC TROMETHAMINE 15 MG/ML VIAL IM ONE (18:10)
[2019-01-04] MEDS ORDERED: KETOROLAC TROMETHAMINE 15 MG/ML VIAL ONE (18:12)
--- NOTE | 2019-01-05 11:12 | EKG ---
Test Reason : Blood Pressure : / mmHG Vent. Rate : 092 BPM Atrial Rate : 092 BPM P-R Int : 128 ms QRS Dur : 068 ms QT Int : 376 ms P-R-T Axes : 037 047 040 degrees QTc Int : 464 ms NORMAL SINUS RHYTHM NORMAL ECG WHEN COMPARED WITH ECG OF 02-MAR-2018 10:12, NO SIGNIFICANT CHANGE WAS FOUND Confirmed by Ajit Alvarez MD ([id number]) on 01/05/2019 11:12:13 AM Referred By: Confirmed By:Ajit Alvarez MD
== END 2019-01-04 19:05 | disposition home or self-care (01) ==
LOC: JER 16:06
PROC: 3E0233Z Introduction of Anti-inflammatory into Muscle, Percutaneous Approach (ICD-10-PCS; principal; 2019-01-04)
DX: N64.4 Mastodynia (principal); D24.1 Benign neoplasm of right breast
CPT/HCPCS: 36415; 71046-TC-FY; 80053; 84484; 84703; 85025; 85610; 85730; 93005; 93010; 96372; 99282-25

== ENCOUNTER 2019-03-16 11:19 | Emergency (ER) | payer OTHER ==
[2019-03-16 11:26] VITALS: BMI 42.3
--- NOTE | 2019-03-16 11:56 | PDOC ---
History of Present Illness - History of Present Illness Initial Comments: 03/16/19 12:41 38y/o F hx of fibroids, benign breast tumor (right side) presents to the ER with 2 months of vaginal bleeding and and lower cramping abdominal pain. She was given a Depo shot by her BANK MESSENGER and started bleeding 1 wk afterwards. OB has placed her on medications since then (can't remember what it was. She soaks through about 3 pads every day and has been passing approx. quarter sized clots as well. She has had some shortness of breath on exertion,palpitations lightheadedness and fatigue.She denies any nausea, vomiting, chest pain, diarrhea, burning on urination 03/16/19 12:45 <Rj Ng - Last Filed: 03/16/19 14:41> <Paris Russell - Last Filed: 03/19/19 12:11> - General Chief Complaint: Vaginal Bleeding Stated Complaint: VAGINAL BLEEDING Time Seen by Provider: 03/16/19 11:50 Past History - Past Medical History COPD: No GI Disorders: Yes (INTERNAL HERNIA) Seizures: Yes (EPILEPSY- LAST ONE WAS 15YRS AGO) - Surgical History Abdominal Surgery: Yes (SM BOWEL OBSTR) - Reproductive History Cervical CA: No Dysfunctional Uterine Bleeding: No Ectopic : No Endometrial CA: No Polycystic Ovaries: Yes Tubal Ligation: No - Immunization History Immunization Up to Date: Yes - Psycho Social/Smoking Cessation Hx Smoking History: Never smoked Have you smoked in the past 12 months: No Hx Alcohol Use: No Drug/Substance Use Hx: No Substance Use Type: Alcohol Hx Substance Use Treatment: No <Rj Ng - Last Filed: 03/16/19 14:41> <Paris Russell - Last Filed: 03/19/19 12:11> - Past Medical History Allergies/Adverse Reactions: Allergies Allergy/AdvReac Type Severity Reaction Status Date / Time No Known Allergies Allergy Verified 03/16/19 11:26 Home Medications: Ambulatory Orders Ferrous Sulfate 325 mg PO DAILY 03/16/19 Review of Systems - Review of Systems Constitutional: No: Chills, Fever HEENTM: No: Blurred Vision, Tearing Respiratory: Yes: Shortness of Breath. No: Cough Cardiac (ROS): Yes: Lightheadedness, Palpitations. No: Chest Pain ABD/GI: No: Abdominal Distended, Diarrhea : No: Burning, Dysuria Musculoskeletal: Yes: Back Pain Integumentary: No: Bruising, Change in Color Neurological: Yes: Headache Endocrine: No: Excessive Sweating, Flushing <Rj Ng - Last Filed: 03/16/19 14:41> *Physical Exam - Vital Signs Last Vital Signs Temp Pulse Resp BP Pulse Ox 98 F 98 H 18 144/88 100 03/16/19 11:23 03/16/19 11:23 03/16/19 11:23 03/16/19 11:23 03/16/19 11:23 - Physical Exam Comments: 03/16/19 13:00 PE: GENERAL: Awake, alert, and fully oriented, in no acute distress HEAD: No signs of trauma, normocephalic, atraumatic EYES: PERRLA, EOMI, sclera anicteric, conjunctiva clear ENT: Auricles normal inspection, hearing grossly normal, nares patent, oropharynx clear without exudates. Moist mucosa NECK: Normal ROM, supple, no lymphadenopathy, JVD, or masses LUNGS: No distress, speaks full sentences, clear to auscultation bilaterally HEART: Regular rate and rhythm, normal S1 and S2, no murmurs, rubs or gallops, peripheral pulses normal and equal bilaterally. ABDOMEN: Soft, +tenderness (RUQ and across lower quadrants.) Pelvic: negative: CMT, adnexal tenderness. Positive: clots in vaginal vault and blood. cervical os not properly visualized. EXTREMITIES : Normal inspection, Normal range of motion, no edema. No clubbing or cyanosis <Rj Ng - Last Filed: 03/16/19 14:41> - Vital Signs Last Vital Signs Temp Pulse Resp BP Pulse Ox 98.1 F 89 18 118/80 98 03/16/19 14:44 03/16/19 14:44 03/16/19 14:44 03/16/19 14:44 03/16/19 14:44 <Paris Russell - Last Filed: 03/19/19 12:11> ED Treatment Course - LABORATORY CBC & Chemistry Diagram: 03/16/19 12:25 03/16/19 12:25 <Rj Ng - Last Filed: 03/16/19 14:41> - LABORATORY CBC & Chemistry Diagram: 03/16/19 12:25 03/16/19 12:25 - ADDITIONAL ORDERS Additional order review: 03/16/19 12:47 Urine Culture - Preliminary Urine - Urine Clean Catch Staphylococcus Latex Coag Pos Diphtheroid/Corynebacterium 03/16/19 12:25 RBC 4.53 MCV 80.1 MCHC 32.9 RDW 15.8 H MPV 8.0 Neutrophils % 72.8 D Lymphocytes % 20.0 D Monocytes % 5.8 Eosinophils % 1.0 Basophils % 0.4 - Medications Given in the ED: ED Medications Discontinued Medications Generic Name Dose Route Start Last Admin Trade Name Marisol PRN Reason Stop Dose Admin Acetaminophen 975 mg 03/16/19 14:35 03/16/19 14:44 Tylenol - PO 03/16/19 14:36 975 mg ONCE ONE Administration <Paris Russell - Last Filed: 03/19/19 12:11> Medical Decision Making - Medical Decision Making 03/16/19 13:03 38y/o F hx of fibroids, benign breast tumor (right side) presents to the ER with 2 months of vaginal bleeding and and lower cramping abdominal pain. Labs cbc, cmp, ua, pt/inr, type and screen Imaging: TVUS 03/16/19 14:36 Labs unremarkable hgb/hct, 11.9/35.3 TVUS pending read -patient complaining of headache -given po tylenol 975mgPO 03/16/19 14:41 <Rj Ng - Last Filed: 03/16/19 14:41> - Medical Decision Making TVUS without acute pathology as documented, wnl. no torsion. no sig free fluid discharge with her BANK MESSENGER followup in 2 days as previously scheduled 03/19/19 12:11 <Paris Russell - Last Filed: 03/19/19 12:11> Discharge - Discharge Information Problems reviewed: Yes - Admission No <Rj Ng - Last Filed: 03/16/19 14:41> <Paris Russell - Last Filed: 03/19/19 12:11> - Discharge Information Clinical Impression/Diagnosis: Vaginal bleeding Condition: Stable Disposition: HOME - Follow up/Referral Referrals: Duke Ramirez [Primary Care Provider] - - Patient Discharge Instructions Patient Printed Discharge Instructions: Anemia, DI for Vaginal Bleeding Additional Instructions: You were seen in the ER for vaginal bleeding Make sure to keep your appointment with your BANK MESSENGER for this . you have also been given a copy of all your lab work. RETURN TO THE ER If you experience worsening dizziness, shortness of breath, new and persistent fevers, other foul smelling discolored vaginal discharge, or for any other concerns. - Post Discharge Activity
[2019-03-16 13:19] LABS: BASO % 0.4 % (0-2.0); HEMATOCRIT 36.3 % (32.4-45.2); HEMOGLOBIN 11.9 GM/dL (10.7-15.3); MCH 26.3 pg (25.7-33.7); MCHC 32.9 g/dl (32.0-36.0); MEAN CELL VOLUME 80.1 fl (80-96); MONO % 5.8 % (3.8-10.2); NEUT % 72.8 % (42.8-82.8); PLATELET COUNT 390 K/MM3 (134-434); RBC 4.53 M/mm3 (3.60-5.2); RDW 15.8 % (11.6-15.6)
[2019-03-16 13:37] LABS: EPI CELLS 2.6 /HPF (0-5/HPF); HYALINE CASTS 1 /lpf (0-8); URINE APPEARANCE CLEAR; URINE BACTERIA 13.2 /hpf (NEGATIVE); URINE BILIRUBIN NEGATIVE (NEGATIVE); URINE COLOR YELLOW; URINE GLUCOSE (UA) NEGATIVE (NEGATIVE); URINE KETONE TRACE (NEGATIVE); URINE LEUK ESTERASE NEGATIVE (NEGATIVE); URINE NITRITE NEGATIVE (NEGATIVE); URINE PROTEIN TRACE (NEGATIVE); URINE RBC 573 /hpf (0-4); URINE WBC 2 /hpf (0-5)
--- NOTE | 2019-03-16 13:46 | PDOC ---
Documentation entered by Oj Husain SCRIBE, acting as scribe for Paris Russell MD. Paris Russell MD: This documentation has been prepared by the Rodrigue christopher Daniel, SCRIBE, under my direction and personally reviewed by me in its entirety. I confirm that the documentation accurately reflects all work, treatment, procedures, and medical decision making performed by me. Attending Attestation - Resident Resident Name: [email or web address] - ED Attending Attestation I have performed the following: I have examined & evaluated the patient, The case was reviewed & discussed with the resident, I agree w/resident's findings & plan - HPI HPI: 03/16/19 13:41 38y/o F hx of fibroids, benign breast tumor (right side) presents to the ER with 2 months of vaginal bleeding and and lower cramping abdominal pain. She was given a Depo shot by her SCRAP BURNER and started bleeding 1 wk afterwards. OB has placed her on medications since then (can't remember what it was. She soaks through about 3 pads every day and has been passing approx. quarter sized clots as well. She has had some shortness of breath on exertion,palpitations lightheadedness and fatigue.She denies any nausea, vomiting, chest pain, diarrhea, burning on urination - Physicial Exam PE: 03/16/19 13:41 Agree with the resident's HPI and PE as documented in the electronic medical record. NAD, well appearing, EOMI, PERRL, nl conjunctiva, anicteric; neck supple. lungs clear, RRR, abdomen soft nontender. no rebound, guarding. Back nontender. MELLO x4, no focal neuro deficits. No peripheral edema. normal color for ethnicity , WWP. Pelvic exam done by resident, see physical examination note. - Medical Decision Making 03/16/19 13:43 Vital Signs Temp Pulse Resp BP Pulse Ox 98 F 98 H 18 144/88 100 03/16/19 11:23 03/16/19 11:23 03/16/19 11:23 03/16/19 11:23 03/16/19 11:23 DDx female abdominal pain/VB: ovarian cyst, ovarian torsion, TOA, appy, UTI, pyelonephritis, STD/PID, Mittelschmerz, anemia, electrolyte/metabolic derangements, DUB VS wnl, normotensive, no tachy or hypoxia/respiratory distress. abdomen benign on reeval and no peritoneal findings, no VB here, controlled hcg neg, not . TVUS Heterogeneous uterus, some endocervical fluid, no adnexal masses or significant pelvic free fluid, normal ovaries in size and texture, no evidence of torsion. given tylenol for headache brian PO intake, feels improved. 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 Dispo: OB-compliance representative dealer followup, bleeding precautions; return to ED if persistent and heavy vaginal bleeding, persistent pelvic pain not relieved by your prescribed medications, dizziness, shortness of breath, new and persistent fevers, other foul smelling discolored vaginal discharge, or for any other concerns. 03/16/19 14:54
[2019-03-16 13:51] LABS: ALBUMIN 3.5 g/dl (3.4-5.0); BILIRUBIN,TOTAL 0.2 mg/dL (0.2-1); BLOOD UREA NITROGEN 8.8 mg/dL (7-18); INR 1.18 (0.83-1.09); POTASSIUM 4.4 mmol/L (3.5-5.1); TOT PROT 7.8 g/dl (6.4-8.2)
[2019-03-16] MEDS ORDERED: ACETAMINOPHEN 500 MG TABLET (FP) PO ONE (14:35)
[2019-03-16] MEDS ORDERED: ACETAMINOPHEN 325 MG TABLET (FP) ONE (14:37)
[2019-03-16 14:45] VITALS: BP 118/80; PULSE 89; TEMP 98.1
== END 2019-03-16 15:05 | disposition home or self-care (01) ==
LOC: JER 11:19
DX: N93.8 Other specified abnormal uterine and vaginal bleeding (principal); R51 Headache; Z86.2 Personal history of diseases of the blood and blood-forming organs and certain disorders involving the immune mechanism
CPT/HCPCS: 36415; 76830-TC; 80053; 81003; 84702; 84703; 85025; 85610; 86850; 86900; 86901; 87077; 87086; 87186; 99283-25

== ENCOUNTER 2020-03-13 16:17 | Observation (INO) | payer BC, OTHER ==
[2020-03-13] MEDS ORDERED: SODIUM CHLORIDE 1,000 ML IV STA (16:23)
[2020-03-13] MEDS ORDERED: MECLIZINE HCL 25 MG TABLET (FP) PO ONE (16:25)
[2020-03-13] MEDS ORDERED: MECLIZINE HCL 25 MG TABLET (FP) ONE (17:51)
[2020-03-13 18:29] LABS: BASO % 0.3 % (0-2.0); EOS % 1.8 % (0-4.5); HEMATOCRIT 39.2 % (32.4-45.2); HEMOGLOBIN 12.9 GM/dL (10.7-15.3); LYMPH % 36.6 % (8-40); MCH 27.2 pg (25.7-33.7); MEAN CELL VOLUME 82.3 fl (80-96); MEAN PLT VOLUME 7.7 fl (7.5-11.1); MONO % 7.8 % (3.8-10.2); NEUT % 53.5 % (42.8-82.8); PLATELET COUNT 385 K/MM3 (134-434); RBC 4.76 M/mm3 (3.60-5.2); RDW 15.1 % (11.6-15.6); WHITE BLOOD COUNT 6.2 K/mm3 (4.0-10.0)
[2020-03-13 18:37] LABS: PH,URINE 6.5 (5.0-8.0); URINE APPEARANCE CLEAR; URINE BILIRUBIN NEGATIVE (NEGATIVE); URINE COLOR YELLOW; URINE GLUCOSE (UA) NEGATIVE (NEGATIVE); URINE KETONE NEGATIVE (NEGATIVE); URINE LEUK ESTERASE NEGATIVE (NEGATIVE); URINE NITRITE NEGATIVE (NEGATIVE); URINE PROTEIN NEGATIVE (NEGATIVE); URINE UROBILINOGEN 0.2 mg/dL (0.2-1.0)
[2020-03-13 18:39] LABS: HCG,QUALITATIVE URINE Negative
[2020-03-13 18:42] LABS: CHLORIDE 104 mmol/L (98-107); SODIUM 138 mmol/L (136-145)
[2020-03-13 18:44] LABS: CALCIUM 8.5 mg/dL (8.5-10.1)
[2020-03-13 18:45] LABS: ALBUMIN 3.4 g/dl (3.4-5.0); ANION GAP 8 MMOL/L (8-16); BLOOD UREA NITROGEN 7.2 mg/dL (7-18); CO2 26 mmol/L (21-32); GLUCOSE,RANDOM 76 mg/dL (74-106)
[2020-03-13 18:48] LABS: CREATININE 0.9 mg/dL (0.55-1.3); SGOT/AST 10 U/L (15-37); SGPT/ALT 16 U/L (13-61)
[2020-03-13 18:50] LABS: BILIRUBIN,TOTAL 0.2 mg/dL (0.2-1); TOT PROT 8.1 g/dl (6.4-8.2)
[2020-03-13 18:51] LABS: ALK PHOS 74 U/L (45-117)
[2020-03-13] MEDS ORDERED: ONDANSETRON 4 MG/2 ML VIAL IVPUSH ONE (18:54)
[2020-03-13] MEDS ORDERED: LORazepam 2 MG/ML SDV VIAL ONE (20:09)
[2020-03-13] MEDS ORDERED: METOCLOPRAMIDE HCL INJECTION 10 MG/2 ML VIAL IVPUSH ONE (22:55)
[2020-03-13] MEDS ORDERED: SODIUM CHLORIDE 1,000 ML IV SCH (23:15)
[2020-03-13] MEDS ORDERED: MECLIZINE HCL 25 MG TABLET (FP) PO PRN (23:53)
[2020-03-14] MEDS ORDERED: METOCLOPRAMIDE HCL INJECTION 10 MG/2 ML VIAL ONE (00:52)
[2020-03-14 04:04] VITALS: BMI 47.7
[2020-03-14 08:52] LABS: HEMOGLOBIN 11.2 GM/dL (10.7-15.3); MCH 26.8 pg (25.7-33.7); MCHC 32.9 g/dl (32.0-36.0); MEAN CELL VOLUME 81.5 fl (80-96); MEAN PLT VOLUME 7.6 fl (7.5-11.1); PLATELET COUNT 334 K/MM3 (134-434); RBC 4.17 M/mm3 (3.60-5.2); RDW 15.1 % (11.6-15.6); WHITE BLOOD COUNT 5.6 K/mm3 (4.0-10.0)
[2020-03-14 09:23] LABS: BLOOD UREA NITROGEN 7.1 mg/dL (7-18); CALCIUM 8.3 mg/dL (8.5-10.1)
[2020-03-14 09:26] LABS: CREATININE 0.9 mg/dL (0.55-1.3)
[2020-03-14] MEDS: carBAMazepine 200 MG TABLET PO SCH ×2 (10:38→21:00)
[2020-03-14] MEDS: MECLIZINE HCL 25 MG TABLET (FP) PO SCH ×2 (10:39→21:00)
[2020-03-14] MEDS ORDERED: PT OWN MED DRAWER 7, Y5N ONE (20:56)
[2020-03-14] MEDS ORDERED: DOCUSATE SODIUM 100 MG CAPSULE (FP) PO ONE (21:23)
[2020-03-15 08:03] LABS: HEMATOCRIT 36.3 % (32.4-45.2); MCH 27.5 pg (25.7-33.7); MCHC 33.1 g/dl (32.0-36.0); MEAN PLT VOLUME 7.7 fl (7.5-11.1); PLATELET COUNT 325 K/MM3 (134-434); RBC 4.37 M/mm3 (3.60-5.2); RDW 15.1 % (11.6-15.6)
[2020-03-15 08:17] LABS: POTASSIUM 4.8 mmol/L (3.5-5.1)
[2020-03-15 08:36] LABS: BLOOD UREA NITROGEN 9.6 mg/dL (7-18); CALCIUM 8.4 mg/dL (8.5-10.1); MAGNESIUM 2.2 mg/dL (1.8-2.4)
[2020-03-15 08:40] LABS: BILIRUBIN,TOTAL 1.5 mg/dL (0.2-1)
[2020-03-15 08:44] LABS: PHOSPHOROUS 4.5 mg/dL (2.5-4.9)
[2020-03-15 08:45] LABS: TOT PROT 6.9 g/dl (6.4-8.2)
[2020-03-15] MEDS ORDERED: PT OWN MED DRAWER 7, Y5N ONE (08:56)
[2020-03-15] MEDS: carBAMazepine 200 MG TABLET PO SCH (09:00)
[2020-03-15] MEDS: MECLIZINE HCL 25 MG TABLET (FP) PO SCH (09:00)
[2020-03-15 10:19] VITALS: BP 155/92; PULSE 91; TEMP 98.4
[2020-03-15 12:03] LABS: BILIRUBIN,DIRECT 0.1 mg/dL (0.0-0.2)
== END 2020-03-15 15:42 | disposition home or self-care (01) ==
LOC: JER 16:17 → JERBED 23:11 → INTOOBSV 23:11 → UNDOADMOB 23:11 → J5S 03-14 03:19 → JERBED 03-14 03:19 → J5S 03-14 13:41 → JERBED 03-14 13:41
PROVIDERS: ADMIT Hospitalist; ATTEND Internal Medicine
PROC: 3E033NZ Introduction of Analgesics, Hypnotics, Sedatives into Peripheral Vein, Percutaneous Approach (ICD-10-PCS; principal; 2020-03-14)
PROC: 3E033GC Introduction of Other Therapeutic Substance into Peripheral Vein, Percutaneous Approach (ICD-10-PCS; 2020-03-14)
PROC: 3E0337Z Introduction of Electrolytic and Water Balance Substance into Peripheral Vein, Percutaneous Approach (ICD-10-PCS; 2020-03-14)
DX: R42 Dizziness and giddiness (principal); R56.9 Unspecified convulsions; E66.8 Other obesity; Z68.42 Body mass index [BMI] 45.0-49.9, adult; E23.6 Other disorders of pituitary gland
CPT/HCPCS: 36415; 70450-TC; 70551-TC; 80048; 80053; 81003; 82248; 82550; 83735; 84100; 84443; 84484; 84703; 85025; 85027; 87086; 93005; 93010; 93306-TC; 96361; 96374; 96375; 99285-25; C9803; G0378; U0003

== ENCOUNTER 2021-02-12 10:17 | Emergency (ER) | payer OTHER ==
[2021-02-12 10:30] VITALS: BP 157/90; PULSE 87; TEMP 98; BMI 47.6
== END 2021-02-12 12:07 | disposition home or self-care (01) ==
LOC: JER 10:17
DX: R05.1 Acute cough (principal); R09.81 Nasal congestion; J06.9 Acute upper respiratory infection, unspecified; Z11.52 Encounter for screening for COVID-19
CPT/HCPCS: 71046-TC-FY; 93005; 93010; 99283-25; C9803; U0003; U0005